=== PATIENT | female | born 1975 | race Caucasian/White ===

== ENCOUNTER 2019-10-01 08:25 | Day surgery (SDC) | payer OTHER ==
[~2019-10-01] VITALS: Ht 180.3 cm; Wt 111.1 kg
--- NOTE | 2019-10-01 10:30 | NUR ---
10/01/19 1030 Shiv Go RESPONDS TO VOICE. DENIES NAUSEA OR PAIN. ORIENTED TO TIME AND SITUATION.
--- NOTE | 2019-10-01 11:45 | OR ---
[facility] [address], [place] [address] Signed DATE OF OPERATION: 10/01/2019 SURGEON: Huong Gant MD PREOPERATIVE DIAGNOSES: 1. Recurrent episodes of diverticulitis. 2. Recurrent urinary tract infections without pneumaturia. 3. Clinical episodes of upper abdominal pain suggestive of reflux disease. POSTOPERATIVE DIAGNOSES: 1. Poor flap valve without associated esophagitis. 2. Diverticular changes of sigmoid without signs of polyps or colitis or stricture. PROCEDURES: 1. Esophagogastroduodenoscopy with biopsy. 2. Total colonoscopy to cecum. ANESTHESIA: Intravenous sedation, fentanyl 150 mcg, Versed 6 mg. INDICATION: This 44-year-old obese white woman (BMI 34.2) is a patient of JAZMYNE Ruelas. She lives in [place], [place] and works at [employer]. She has had recurrent bouts of diverticulitis at least 4 episodes, treated with antibiotics. This has become progressively problematic for her. She has had some diarrhea, but no constipation. She has undergone C difficile testing, which was negative. She is not currently having left lower abdominal pain, but does have some vague upper abdominal pain as well. She has undergone colonoscopy in the past in [facility], confirming diverticular changes, but no sign of polyps. She was advised previously to avoid nonsteroidal medications. She is medicated with prilosec for clinical GERD symptoms but has no alarm symptoms of dyspahagia or hematemesis. She is admitted at this time to undergo upper endoscopy and colonoscopy. She understands the risks of bleeding, infection, and perforation. FINDINGS: Upper endoscopy was normal except for a poor flap valve. She did not have associated esophagitis. CLOtest was negative. There were no other findings of concern. Colonoscopy showed a well prepped bowel. Complete colonoscopy was undertaken to the Electronically Signed By: HUONG GANT MD 10/01/19 1145 PATIENT NAME: AYALA LANDA OPERATIVE REPORT DATE OF : 73 REPORT #: [id number] PHYSICIAN: HUONG GANT MD PCP: NO PRIMARY CARE PHYSICIAN REPORT IS CONFIDENTIAL AND NOT TO BE RELEASED WITHOUT AUTHORIZATION [facility] [address] [place], [place] [address] Signed cecum. There were diverticula of the sigmoid and left colon. No sign of stricture, neoplasm or other abnormality. DESCRIPTION OF PROCEDURE: The patient was brought to the endoscopy suite, given topical Hurricaine spray hypopharyngeal anesthesia. She was placed in lateral decubitus position. A bite block was placed. Intravenous sedation was administered to a point of slurred speech and nystagmus with full cardiopulmonary monitoring. An Olympus video upper endoscope was passed in the hypopharynx and the vocal cords appeared normal. Scope was advanced to the esophagus, which appeared normal. Passed into the stomach, which was additionally normal. Rugal folds were normal as was the antral motility. The scope was passed through the normal-appearing pylorus into the duodenum, which appeared normal. Biopsies were obtained there to assess for celiac disease. The scope was withdrawn and biopsies then taken of the antrum for both CAROLYN and pathologic testing. Retroflexed view initially showed a reasonably good flap valve, but withdrawal of scope showed easy effacement of a somewhat patulous flap valve. The scope was straightened, withdrawn and the flap valve appeared normal. Mid midesophageal biopsies were additionally taken. The scope was withdrawn and removed. Plans were then made for colonoscopy. Additional sedation was given. Digital rectal examination performed, which was normal. An Olympus video colonoscope was passed in the rectum and manipulated throughout the colon noting diverticular change of the sigmoid and left colon. Abdominal wall stabilization was required to allow for passage to fully visualize the cecum. The biopsy forceps was used to elevate the mucosa behind the ileocecal valve, showing no sign of abnormality. The scope was then withdrawn, examination throughout showed no evidence of polyps, colitis, only diverticular changes as previously noted. The rectum was normal as well. The scope was removed and the patient was taken to the recovery room in good condition. CONCLUDING DIAGNOSES: 1. Normal upper endoscopy except for poor flap valve. 2. Diverticulosis of sigmoid. PLAN: High-fiber diet would be recommended. Consideration for elective sigmoid resection will be made depending on her preference considering recurrent diverticular disease. We will review her options more fully in the future. Electronically Signed By: HUONG GANT MD 10/01/19 1145 PATIENT NAME: AYALA LANDA OPERATIVE REPORT DATE OF : 73 REPORT #: [id number] PHYSICIAN: HUONG GANT MD PCP: NO PRIMARY CARE PHYSICIAN REPORT IS CONFIDENTIAL AND NOT TO BE RELEASED WITHOUT AUTHORIZATION [facility] [address] [place], [place] [address] Signed Huong Gant MD JM/MODL /[id number] cc: JAZMYNE Ruelas Copies: YAN BERNABE ~ Electronically Signed By: HUONG GANT MD 10/01/19 1145 PATIENT NAME: AYALA LANDA OPERATIVE REPORT DATE OF : 73 REPORT #: [id number] PHYSICIAN: HUONG GANT MD PCP: NO PRIMARY CARE PHYSICIAN REPORT IS CONFIDENTIAL AND NOT TO BE RELEASED WITHOUT AUTHORIZATION
--- NOTE | 2019-10-05 15:42 | PATH ---
[facility] [address] [place], [place] [address] Signed SPECIMEN(S): A DUODENUM SPECIMEN(S): B ANTRUM/PYLORUS SPECIMEN(S): C LOWER ESOPHAGUS SPECIMEN(S): D MIDDLE ESOPHAGUS SPECIMEN SOURCE: A. DUODENUM B. ANTRUM/PYLORUS C. LOWER ESOPHAGUS D. MIDDLE ESOPHAGUS CLINICAL HISTORY: History diverticulitis, diarrhea, LLQ pain. Post: Hiatal hernia, diverticulosis. MICROSCOPIC DESCRIPTION: A, B. Histologic sections of all submitted blocks are examined by light microscopy. These findings, together with the gross examination, support the pathologic diagnosis. C. Sections reveal a biopsy of esophageal mucosa composed of stratified squamous nonkeratinizing epithelium. The basal cell layer is not prominent and rete ridges are not elongated. A few intraepithelial lymphocytes are seen. Intraepithelial eosinophils are not a feature. No glandular mucosa is present. There is no evidence of malignancy or atypia. D. Sections reveal a biopsy of esophageal mucosa histologically similar to that described above in C. There is no evidence of malignancy or atypia. LJA:cml FINAL PATHOLOGIC DIAGNOSIS: A. Mucosa, duodenum, biopsy: - Duodenal mucosa with normal villous architecture, no microscopic pathologic diagnosis. B. Mucosa, antrum/pylorus, biopsy: - No microscopic pathologic diagnosis. - Negative for the presence of bacteria morphologically consistent with Helicobacter. C. Mucosa, lower esophagus, biopsy: - No microscopic pathologic diagnosis. D. Mucosa, middle esophagus, biopsy: - No microscopic pathologic diagnosis. LJA:cml:C2NR PATIENT NAME: JOSEPHINE SAXENA PATHOLOGY DATE OF : 73 REPORT #: [id number] PHYSICIAN: JOSEY ESCOBAR PCP: NO PRIMARY CARE PHYSICIAN REPORT IS CONFIDENTIAL AND NOT TO BE RELEASED WITHOUT AUTHORIZATION [facility] [address] [place], [place] [address] Signed GROSS DESCRIPTION: Four specimens are received in four containers, labeled "Josephine Saxena." A. The specimen, labeled "Josephine Saxena," and designated on the requisition "duodenum," is received in formalin and consists of three mohr soft tissue fragments that measure 0.2 to 0.3 cm in greatest dimension. The specimen is entirely submitted in cassette (A1). B. The specimen, labeled "Josephine Saxena, #2," and designated on the requisition "antrum/pylorus," is received in formalin and consists of two pink-mohr soft tissue fragments that measure 0.3 to 0.4 cm in greatest dimension. The specimen is entirely submitted in cassette (B1). C. The specimen, labeled "Josephine Saxena, #3," and designated on the requisition "lower esophagus," is received in formalin and consists of two white-mohr soft tissue fragments that measure 0.4 and 0.6 cm in greatest dimension. The specimen is entirely submitted in cassette (C1). D. The specimen, labeled "Josephine Saxena, #4," and designated on the requisition "mid esophagus," is received in formalin and consists of two white-mohr soft tissue fragments that measure 0.2 and 0.3 cm in greatest dimension. The specimen is entirely submitted in cassette (D1). FB (under the direct supervision of a pathologist) The Gross Description was prepared using a voice recognition system. The report was reviewed for accuracy; however, sound-alike word errors, addition and/or deletions may occur. If there is any question about this report, please contact Client Services. PERFORMING LABORATORY: The technical component was performed by [facility] [address] (Manager Regulatory: Pia Porras MD; CLIA# [id number]). Professional interpretation was performed by [facility], [address] [facility] [address] [place], [place] [address] (CLIA# [id number]). Diagnostician: Nav Garcia MD Pathologist Electronically Signed 10/05/2019 Copies: PATIENT NAME: JOSEPHINE SAXENA PATHOLOGY DATE OF : 73 REPORT #: [id number] PHYSICIAN: JOSEY PATHOLOGY PCP: NO PRIMARY CARE PHYSICIAN REPORT IS CONFIDENTIAL AND NOT TO BE RELEASED WITHOUT AUTHORIZATION [facility] [address] [place], [place] [address] Signed ~ PATIENT NAME: JOSEPHINE SAXENA PATHOLOGY DATE OF : 73 REPORT #: [id number] PHYSICIAN: JOSEY PATHOLOGY PCP: NO PRIMARY CARE PHYSICIAN REPORT IS CONFIDENTIAL AND NOT TO BE RELEASED WITHOUT AUTHORIZATION
== END 2019-10-01 11:07 | disposition home or self-care (01) ==
LOC: OPS 08:25 → DS 08:25 → OPS 09:15 → DS 09:15 → OPS 11:07
PROVIDERS: Surgery
PROC: 0DB78ZX Excision of Stomach, Pylorus, Via Natural or Artificial Opening Endoscopic, Diagnostic (ICD-10-PCS; 2019-10-01)
PROC: 0DB28ZX Excision of Middle Esophagus, Via Natural or Artificial Opening Endoscopic, Diagnostic (ICD-10-PCS; 2019-10-01)
PROC: 0DB38ZX Excision of Lower Esophagus, Via Natural or Artificial Opening Endoscopic, Diagnostic (ICD-10-PCS; 2019-10-01)
PROC: 0DJD8ZZ Inspection of Lower Intestinal Tract, Via Natural or Artificial Opening Endoscopic (ICD-10-PCS; principal; 2019-10-01 09:15)
PROC: 0DB98ZX Excision of Duodenum, Via Natural or Artificial Opening Endoscopic, Diagnostic (ICD-10-PCS; 2019-10-01 09:15)
DX: K57.30 Diverticulosis of large intestine without perforation or abscess without bleeding (principal); K44.9 Diaphragmatic hernia without obstruction or gangrene; K21.9 Gastro-esophageal reflux disease without esophagitis; N39.0 Urinary tract infection, site not specified; E66.01 Morbid (severe) obesity due to excess calories; Z88.5 Allergy status to narcotic agent; Z90.710 Acquired absence of both cervix and uterus; Z98.890 Other specified postprocedural states; Z87.19 Personal history of other diseases of the digestive system; Z68.34 Body mass index [BMI] 34.0-34.9, adult; Z79.899 Other long term (current) drug therapy
CPT/HCPCS: 99153; G0500; J2250; J3010; J7121

== ENCOUNTER 2019-11-09 14:09 | Inpatient (IN) | payer OTHER ==
[~2019-11-09] VITALS: Ht 180.3 cm; Wt 113.4 kg
--- OUTSIDE RECORDS SUMMARY | ~2019-11-09 | XMS | Encounter Summary ---
Demographics + + + | Address | [address] | | | [place] [address] | + + + | Home Phone | | + + + | Preferred Language | Unknown | + + + | Marital Status | | + + + | Uatsdin Affiliation | 1013 | + + + | Race | White | + + + | Ethnic Group | Not or | + + + Author + + + | Author | [facility] | | | and [place] | + + + | Organization | [facility] | | | and [place] | + + + | Address | Unknown | + + + | Phone | Unavailable | + + + Support + + +---------+ + | Name | Relationship | Address | Phone | + + +---------+ + | Rodrigue Saxena | ECON | Unknown | | + + +---------+ + | Dora Akanksha | ECON | Unknown | | + + +---------+ + Care Team Providers + +------+ + | Care Undercoat Sprayer Name | Role | Phone | + +------+ + PCP | Unavailable | + +------+ + Encounter Details +--------+ + + + + | Date | Type | Department | Care Team | Description | +--------+ + + + + | 09/02/ | Orders Only | [facility] | Lubna Marie, | | | 2018 | | [address] | PA-C [address] | | | | | [place], [place] | [address] | | | | | [phone] | [place] [address] | | | | | [phone] | [phone] | | | | | | | | +--------+ + + + + Social History + +-------+ +--------+------+ | Tobacco Use | Types | Packs/Day | Years | Date | | | | | Used | | + +-------+ +--------+------+ | Never Assessed | | | | | + +-------+ +--------+------+ + + + | Sex Assigned at | Date Recorded | | | | + + + | Not on file | | + + + documented as of this encounter Plan of Treatment Not on filedocumented as of this encounter Procedures + +--------+ + + + | Procedure Name | Priori | Date/Time | Associated Diagnosis | Comments | | | ty | | | | + +--------+ + + + | VITAMIN D, | Routin | 09/02/2017 | | Results for this | | DEFICIENCY SCREEN | e | 3:46 PM | | procedure are in the | | (25-HYDROXY) | | PDT | | results section. | + +--------+ + + + documented in this encounter Results Vitamin D, Deficiency Screen (25-Hydroxy) (09/02/2017 3:46 PM PDT) + + + + + + | Component | Value | Ref Range | Performed | Pathologist | | | | | At | Signature | + + + + + + | Vit D, | 20 (L)Comment: <20 ng/mL | 30 - 150 ng/mL | EXTERNAL | | | 25-Hydroxy | Suggests | | LAB | | | | deficiency of 25-OH | | | | | | Vitamin D. 20-29 ng/mL | | | | | | Suggests a relative | | | | | | insufficiency of 25-OH | | | | | | Vitamin D. 30-150 ng/mL | | | | | | Suggests a sufficient | | | | | | level of 25-OH Vitamin | | | | | | D. >150 ng/mL | | | | | | Toxic level of 25-OH | | | | | | Vitamin D. Blood levels | | | | | | of 25 Hydroxy Vitamin D | | | | | | vary with the extent of | | | | | | sun exposure. Values | | | | | | tend to be highest in | | | | | | late summer and lowest | | | | | | in the spring. Values | | | | | | also tend to decrease | | | | | | with age, due to | | | | | | decreased precursor | | | | | | synthesis in the skin. | | | | + + + + + + + + | Specimen | + + | Blood specimen | | (specimen) | + + + +---------+ + + | Performing | Address | City/State/Zipcode | Phone Number | | Organization | | | | + +---------+ + + | EXTERNAL LAB | | | | + +---------+ + + documented in this encounter Visit Diagnoses Not on filedocumented in this encounter"
--- OUTSIDE RECORDS SUMMARY | ~2019-11-09 | XMS | Encounter Summary ---
Demographics + + + | Address | [address] | | | [place] [address] | + + + | Home Phone | | + + + | Preferred Language | Unknown | + + + | Marital Status | | + + + | Shinto Affiliation | 1013 | + + + | Race | White | + + + | Ethnic Group | Not or | + + + Author + + + | Author | [facility] | | | and [place] | + + + | Organization | [facility] | | | and [place] | + + + | Address | Unknown | + + + | Phone | Unavailable | + + + Support + + +---------+ + | Name | Relationship | Address | Phone | + + +---------+ + | Rodrigue Saxena | ECON | Unknown | | + + +---------+ + | [place] | ECON | Unknown | | + + +---------+ + Care Team Providers + +------+ + | Care Fancy Packer Name | Role | Phone | + +------+ + PCP | Unavailable | + +------+ + Encounter Details +--------+ + + + + | Date | Type | Department | Care Team | Description | +--------+ + + + + | 01/01/ | Hospital | [facility] | Conversion | Encounter for | | 2017 | Encounter | IMAGING SERVICES | Transaction, | screening breast | | | | [address] | Provider Unknown | examination | | | | [address] [place], [place] | [phone] | | | | | [phone] | (Fax) | | | | | [phone] | | | +--------+ + + + [...] + + documented as of this encounter Progress Notes Lubna Marie PA-C - 01/01/2017 11:59 PM PDTFormatting of this note might be different f rom the original. Progress Notes by Lubna Marie PA-C at 01/01/172358 Author: Lubna Marie PA-C Service: (none) Author Type: Physician [employer] Teacher - Certified Filed: 01/03/17 0752 Date of Service: 01/01/172358 Status: Signed [place] Nibs Inspector: Lubna Marie PA-C (Physician [employer] Industrial [employer] Teacher - Certified) Please inform pt that her mammogram is normal and she is to repeat annual screening in 1 ye ar but she should be evaluated if she develops any breast sxs. documented in this encounter Plan of Treatment Not on filedocumented as of this encounter Procedures + +--------+ + + + | Procedure Name | Priori | Date/Time | Associated Diagnosis | Comments | | | ty | | | | + +--------+ + + + | THERESE TOMOSYN | Routin | 01/01/2017 | | Results for this | | SCREENING BILATERAL | e | 5:55 PM | | procedure are in the | | | | PDT | | results section. | + +--------+ + + + documented in this encounter Results THERESE Tomosynthesis Screening Bilateral (01/01/2017 5:55 PM PDT) + + | Specimen | + + | | + + + + + | Impressions | Performed At | + + + | 1. Benign findings. Normal interval follow-up is recommended in | | | 12 months. Assessment: BI-RADS 2 Per National MQSA | | | guidelines, a letter of notification will be sent to the patient. | | | | | | 4:10 PM | | + + + + + + | Narrative | Performed At | + + + | JOSEPHINE SAXENA MAMMO SCREEN COMBO HD BILATERAL 01/01/2017 5:55 | | | PM HISTORY: 41 years. Female. Asymptomatic for breast | | | disease. TECHNIQUE: Digital mammographic craniocaudad and medial | | | lateral oblique (2D) views of each breast were performed, with | | | additional digital tomosynthesis (3D) imaging of each breast in 2 | | | projections. Computerized aided detection software was utilized. | | | Prior study: 10 January 2016 through 01 February 2009 FINDINGS: | | | Breast Tissue: There are scattered areas of fibroglandular | | | density. Stable parenchymal pattern in architecture. No worrisome | | | findings by computer-assisted detection. No registers. A few | | | asymmetries of denser tissue such behind the right nipple, but these | | | are stable to technique No significant masses, calcifications, or | | | areas of architectural distortion are seen. | | + + + + + | Procedure Note | + + | Tion, Rad Conversion - 11/04/2018 6:37 PM PDT JOSEPHINE PINEDO SCREEN COMBO HD | | [id number]/11/2017 5:55 PM HISTORY: 41 years. Female. Asymptomatic for breast | | disease. TECHNIQUE: Digital mammographic craniocaudad and medial lateral oblique (2D) | | views of each breast were performed, with additional digital tomosynthesis (3D) imaging | | of each breast in 2 projections. Computerized aided detection software was utilized. | | Prior study: 10 January 2016 through 01 February 2009 FINDINGS: Breast Tissue: There | | are scattered areas of fibroglandular density. Stable parenchymal pattern in | | architecture. No worrisome findings by computer-assisted detection. No registers. A few | | asymmetries of denser tissue such behind the right nipple, but these are stable to | | technique No significant masses, calcifications, or areas of architectural distortion | | are seen. IMPRESSION: 1. Benign findings. Normal interval follow-up is recommended in | | 12 months. Assessment: BI-RADS 2 Per National MQSA guidelines, a letter of | | notification will be sent to the patient. | |Stable parenchymal pattern in architecture. No worrisome findings by computer-assisted dete ction. No registers. A few asymmetries of denser tissue such behind the right nipple, but th ernestina are stable to technique | | | |No significant masses, calcifications, or areas of architectural distortion are seen. | | | |IMPRESSION: | | | |1. Benign findings. Normal interval follow-up is recommended in 12 months. | | | |Assessment: BI-RADS 2 | | | | | | | |Per National MQSA guidelines, a letter of notification will be sent to the patient. | | | | | | | | | | | + + documented in this encounter Visit Diagnoses + + | Diagnosis | + + | Encounter for screening breast examination | + + documented in this encounter"
--- OUTSIDE RECORDS SUMMARY | ~2019-11-09 | XMS | Encounter Summary ---
Demographics + + + | Address | [address] | | | [place] [address] | + + + | Home Phone | | + + + | Preferred Language | Unknown | + + + | Marital Status | | + + + | Faith Affiliation | 1013 | + + + | Race | White | + + + | Ethnic Group | Not or | + + + Author + + + | Author | [facility] | | | and [place] | + + + | Organization | [facility] | | | and [place] | + + + | Address | Unknown | + + + | Phone | Unavailable | + + + Support + + +---------+ + | Name | Relationship | Address | Phone | + + +---------+ + | Rodrigue Saxena | ECON | Unknown | | + + +---------+ + | Dorabea Vale | ECON | Unknown | | + + +---------+ + Care Team Providers + +------+ + | Care Medical Staff Services Coordinator Name | Role | Phone | + +------+ + | Lubna Marie PA-C | PCP | | + +------+ + Encounter Details +--------+ + + + + | Date | Type | Department | Care Team | Description | +--------+ + + + + | 02/23/ | Orders Only | [facility] | Jake Reynolds | | | 2015 | | NOSE AND THROAT [address] | MD [address] | | | | | [address] | [address] | | | | | [place], [place] | [place] [address] | | | | | [address] | [phone] | | | | | [phone] | | | +--------+ + + + [...] documented as of this encounter Progress Notes GailJake - 02/23/2015 9:38 AM PSTFormatting of this note might be different f rom the original. Progress Notes by Jake Reynolds MD at 02/23/15 8509 Author: Jake Reynolds MD Service: (none) Author Type: Physician Filed: 02/23/15 1051 Encounter Date: 02/23/2015 Status: Signed Tower Loader Operator: Jake Reynolds MD (Physician) Subjective: Subjective Josephine Saxena is a 39 y.o. female who I am asked to see in consultation for e valuation of dizziness. The dizziness has been present for 5 years. The patient describes t he symptoms as disequilibirum, lightheadedness and upset stomach and headache . . 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 Symptoms seem to last for a few hours before resolving. She is able to continue to work when the episodes occur. She can also have a steady gait when she has one of the episodes. Cleopatra nt denies aural pressure, otalgia, otorrhea, tinnitus, hearing loss. She has not been treat ed or evaluated in the past. The following portions of the patient's history were reviewed and updated as appropriate: a llergies, current medications, past family history, past medical history, past social histor y, past surgical history and problem list. Patient states she had MRI done few years ago. Esteban gonsalez states her symptoms are about every month lasting for about few hours. Patient states she was sitting on her desk working and the dizziness hit and gets headache, nausea and its hard to concentrate. Patient states she has not notice she has lost her balance, she states she feels like car sick. Patient is able to drive after an episode and feels okay after. Nicole urias states she has to do things to help with car sickness. History: Past Medical History Diagnosis Date Infertility Fibroid Past Surgical History Procedure Laterality Date Foot surgery 12/2010 Breast surgery 2003 breast reduction Hysterectomy 2006 partial Breast reduction surgery 2002 bilateral Family History Problem Relation Age of Onset Coronary art dis Father Cancer Father prostate ca Breast cancer Maternal Grandmother 60's Breast cancer Paternal Grandmother 60 History Social History Marital Status: Spouse Name: N/A Number of Children: N/A Years of Education: N/A Social History Main Topics Smoking status: Never Smoker Smokeless tobacco: Never Used Alcohol Use: Yes Drug Use: No Sexual Activity: Partners: Male Control/ Protection: Surgical-Self Other Topics Concern None Social History Narrative Allergies: Allergies Allergen Reactions Codeine Itching and Nausea and Vomiting Medications: No current outpatient prescriptions on file. No current facility-administered medications for this visit. Review of Systems Constitutional: negative Respiratory: negative Cardiovascular: negative Gastrointestinal: negative Hematologic/lymphatic: negative Musculoskeletal:negative Neurological: positive for dizziness and headaches Behavioral/Psych: negative Endocrine: negative Allergic/Immunologic: negative Objective: Objective Pulse 87 | Wt 100.245 kg (221 lb) | SpO2 100% General: healthy, alert, appears stated age, not in distress, voice is clear Head and Face: facial movement was normal and symmetrical, nontender External Ears: normal pinnae shape and position Ext. Aud. Canal: Right:patent Left: patent Tympanic Mem: Right: normal landmarks and mobility Left: normal landmarks and mobility Nose: deviated septum to the left Oral Cavity: normal tongue movement Tonsils: 2+ bilaterally, normal appearance Post. Pharynx: normal mucosa Neck: no asymmetry, masses, or scars, no lymphadenopathy Thyroid: Normal Eyes- Extraocular movements are intact Psych - Alert and oriented to person, place and time Normal Gait, normal Tandem walk, Romberg: Normal cerebellar testing is Normal. Audiometry: normal hearing thresholds bilaterally Tympanometry: Right: Type A Left: Type A Assessment: ICD-10-CM 1. Dizziness R42 CBC W/Auto Diff (Reflex to Manual) Comprehensive metabolic panel Sedimentation rate, automated Assessment Vertigo Plan: Plan 1. Etiology of episodic dizziness is not entirely clear. Possible Meniere's Disease. Rule out metabolic source. I recommend Vestibular studies VNG, will order lab test: cbc, cmp. ESR 2. The risks and benefits of my recommendations, as well as other treatment options were di scussed with the patient today. Return for follow-up after test are completed. documented in this encounter Plan of Treatment Not on filedocumented as of this encounter Procedures + +--------+ + + + | Procedure Name | Priori | Date/Time | Associated Diagnosis | Comments | | | ty | | | | + +--------+ + + + | EXTERNAL LAB: CBC | Routin | 02/23/2015 | | Results for this | | | e | 10:20 AM | | procedure are in the | | | | PST | | results section. | + +--------+ + + + | SEDIMENTATION RATE, | Routin | 02/23/2015 | | Results for this | | AUTOMATED | e | 10:20 AM | | procedure are in the | | | | PST | | results section. | + +--------+ + + + | COMPREHENSIVE | Routin | 02/23/2015 | | Results for this | | METABOLIC PANEL | e | 10:20 AM | | procedure are in the | | | | PST | | results section. | + +--------+ + + + documented in this encounter Results Sedimentation rate, automated (02/23/2015 10:20 AM PST) + + + + + + | Component | Value | Ref Range | Performed | Pathologist | | | | | At | Signature | + + + + + + | Sed Rate | 17Comment: Testing | 0 - 20 | EXTERNAL | | | | performed at [facility];[address] | | LAB | | | | [address] | | | | | | [place] [address] | | | | + + + + + + + + | Specimen | + + | Blood specimen | | (specimen) | + + + +---------+ + + | Performing | Address | City/State/Zipcode | Phone Number | | Organization | | | | + +---------+ + + | EXTERNAL LAB | | | | + +---------+ + + External Lab: CBC (02/23/2015 10:20 AM PST) + + + + + + | Component | Value | Ref Range | Performed | Pathologist | | | | | At | Signature | + + + + + + | WBC | 8.91 | 3.80 - 11.00 | EXTERNAL | | | | | 10*3/uL | LAB | | + + + + + + | Non- | 4.37 | 3.70 - 5.10 | EXTERNAL | | | Red Blood | | | LAB | | | Cells | | | | | | Counted | | | | | + + + + + + | Hemoglobin | 13.8 | 11.3 - 15.5 | EXTERNAL | | | | | g/dL | LAB | | + + + + + + | Hematocrit, | 41.6 | 34.0 - 46.0 % | EXTERNAL | | | POC | | | LAB | | + + + + + + | MCV | 95.3 | 80.0 - 100.0 fL | EXTERNAL | | | | | | LAB | | + + + + + + | MCH | 31.6 | 27.0 - 34.0 pg | EXTERNAL | | | | | | LAB | | + + + + + + | MCHC | 33.2 | 32.0 - 35.5 | EXTERNAL | | | | | g/dL | LAB | | + + + + + + | RDW-CV | 43.8 | 37 - 53 fL | EXTERNAL | | | | | | LAB | | + + + + + + | Platelet | 243 | 150 - 400 | EXTERNAL | | | Count | | 10*3/uL | LAB | | | Plasma | | | | | + + + + + + | MPV | 8.6 | fL | EXTERNAL | | | | | | LAB | | + + + + + + | Differentia | AUTOMATED | | EXTERNAL | | | l Type | | | LAB | | + + + + + + | % Segmented | 67.29 | % | EXTERNAL | | | | | | LAB | | | Neutrophils | | | | | + + + + + + | % | 24.85 | % | EXTERNAL | | | Lymphocytes | | | LAB | | + + + + + + | % Monocytes | 5.57 | % | EXTERNAL | | | | | | LAB | | + + + + + + | % | 1.83 | % | EXTERNAL | | | Eosinophils | | | LAB | | + + + + + + | % Basophils | 0.46 | % | EXTERNAL | | | | | | LAB | | + + + + + + | Absolute | 6.00 | 1.90 - 7.40 | EXTERNAL | | | Segmented | | 10*3/uL | LAB | | | Neutrophils | | | | | + + + + + + | Absolute | 2.21 | 1.00 - 3.90 | EXTERNAL | | | Lymphocytes | | 10*3/uL | LAB | | + + + + + + | Absolute | 0.50 | 0.00 - 0.80 | EXTERNAL | | | Monocytes | | 10*3/uL | LAB | | + + + + + + | Absolute | 0.16 | 0.00 - 0.50 | EXTERNAL | | | Eosinophils | | 10*3/uL | LAB | | + + + + + + | Absolute | 0.04Comment: Testing | 0.00 - 0.10 | EXTERNAL | | | Basophils | performed at [facility];[address] | 10*3/uL | LAB | | | | [address] | | | | | | [address];[place] [address] | | | | + + + + + + + + | Specimen | + + | Blood specimen | | (specimen) | + + + +---------+ + + | Performing | Address | City/State/Zipcode | Phone Number | | Organization | | | | + +---------+ + + | EXTERNAL LAB | | | | + +---------+ + + Comprehensive Metabolic Panel (02/23/2015 10:20 AM PST) + + + + + + | Component | Value | Ref Range | Performed | Pathologist | | | | | At | Signature | + + + + + + | Na | 138 | 135 - 143 | EXTERNAL | | | | | mmol/L | LAB | | + + + + + + | K | 4.3 | 3.5 - 4.9 | EXTERNAL | | | | | mmol/L | LAB | | + + + + + + | Cl | 103 | 99 - 109 mmol/L | EXTERNAL | | | | | | LAB | | + + + + + + | CO2 | 28 | 23 - 32 mmol/L | EXTERNAL | | | | | | LAB | | + + + + + + | Anion Gap | 11 | 5 - 20 mmol/L | EXTERNAL | | | | | | LAB | | + + + + + + | Glucose, | 96 | 65 - 99 mg/dL | EXTERNAL | | | Fasting | | | LAB | | + + + + + + | BUN | 12 | 8 - 25 mg/dL | EXTERNAL | | | | | | LAB | | + + + + + + | Creatinine | 0.77 | 0.50 - 1.00 | EXTERNAL | | | | | mg/dL | LAB | | + + + + + + | BUN/Creatin | 16 | | EXTERNAL | | | ine Ratio | | | LAB | | + + + + + + | Calcium | 9.5 | 8.5 - 10.5 | EXTERNAL | | | | | mg/dL | LAB | | + + + + + + | Protein, | 6.9 | 6.3 - 8.2 g/dL | EXTERNAL | | | Total | | | LAB | | + + + + + + | Albumin | 4.3 | 3.6 - 5.0 g/dL | EXTERNAL | | | | | | LAB | | + + + + + + | Globulin | 2.6 | 1.3 - 4.9 g/dL | EXTERNAL | | | | | | LAB | | + + + + + + | A/G Ratio | 1.7 | 1.0 - 2.4 | EXTERNAL | | | | | | LAB | | + + + + + + | Bilirubin | 0.5 | 0.1 - 1.5 mg/dL | EXTERNAL | | | Total | | | LAB | | + + + + + + | ALP, | 67 | 35 - 115 U/L | EXTERNAL | | | External | | | LAB | | + + + + + + | AST | 12 | 10 - 45 U/L | EXTERNAL | | | | | | LAB | | + + + + + + | ALT | 9 (L) | 10 - 65 U/L | EXTERNAL | | | | | | LAB | | + + + + + + | Estimated | >60Comment: GFR <60: | | EXTERNAL | | | GFR | CHRONIC KIDNEY DISEASE, | | LAB | | | | IF FOUND OVER A 3 MONTH | | | | | | PERIOD. GFR <15: KIDNEY | | | | | | FAILURE. FOR | | | | | | AMERICANS, MULTIPLY THE | | | | | | CALCULATED GFR BY | | | | | | 1.210.Testing performed | | | | | | at [facility];[address] | | | | | | [place] | | | | | | [address] | | | | + + + [...]
--- OUTSIDE RECORDS SUMMARY | ~2019-11-09 | XMS | Encounter Summary ---
Demographics + + + | Address | [address] | | | [place] [address] | + + + | Home Phone | | + + + | Preferred Language | Unknown | + + + | Marital Status | | + + + | Zoroastrianism Affiliation | 1013 | + + + | Race | White | + + + | Ethnic Group | Not or | + + + Author + + + | Author | [facility] | | | and [place] | + + + | Organization | [facility] | | [...] Team Providers + +------+ + | Care Chestnut Tanner Name | Role | Phone | + +------+ + PCP | Unavailable | + +------+ + Encounter Details +--------+ + + + + | Date | Type | Department | Care Team | Description | +--------+ + + + + | 12/22/ | [facility] | [facility] | Conversion | Other screening | | 2015 | Encounter | IMAGING SERVICES | Transaction, | mammogram | | | | [address] | Provider Unknown | | | | | [address] [place], [place] | | | | | | [address] | (Fax) | | | | | [phone] | | | +--------+ + + + [...] + | THERESE TOMOSYN | Routin | 12/22/2014 | | Results for this | | SCREENING BILATERAL | e | 8:46 AM | | procedure are in the | | | | PDT | | results section. | + +--------+ + + + documented in this encounter Results THERESE Tomosynthesis Screening Bilateral (12/22/2014 8:46 AM PDT) + + | Specimen | + + | | + + + + + | Impressions | Performed At | + + + | 1. No evidence of malignancy to screening 3-D mammography with | | | computer assisted detection. BIRADS - 1 - negative screening | | | mammogram. Advise the continuance of annual screening. Note: | | | Patient informed of the above by standard letter. General breast | | | imaging addendum: 10-15% of palpable breast abnormalities may not be | | | visualized on mammography. Negative imaging of the breasts should | | | not postpone further evaluation of a clinically significant palpable | | | abnormality. Electronically signed by Juan J Santana MD on | | | 12/22/2014 10:33 AM | | + + + + + + | Narrative | Performed At | + + + | HISTORY: 39 years old asymptomatic female without here documented | | | elevated risk of breast cancer on the basis of family and personal | | | history. TECHNIQUE: Bilateral screening digital MLO and CC views | | | of breast tissue. Examination performed with additional 3D tomographic | | | views, tomosynthesis. Viewed with benefit of computer assisted | | | detection. Prior study: 30 December 2013 through 03 December 2006 | | | FINDINGS : The breast parenchyma is scattered islands of | | | fibroglandular tissue. No suspicious masses or calcifications. No | | | new or worrisome foci of dense tissue. There is no skin thickening, | | | lymphadenopathy or secondary sign of malignancy. The small lymph nodes | | | in the right axilla are stable. There are no other or worrisome | | | findings by computer-assisted detection Stable parenchymal | | | pattern and architecture to technique There are densities noted, | | | which are not revealed as worrisome upon 3D analysis. | | + + + + + | Procedure Note | + + | Tino, Rad Conversion - 11/06/2018 12:21 AM PDT HISTORY: 39 years old asymptomatic | | female without here documented elevated risk of breast cancer on the basis of family and | | personal history. TECHNIQUE: Bilateral screening digital MLO and CC views of breast | | tissue. Examination performed with additional 3D tomographic views, tomosynthesis. | | Viewed with benefit of computer assisted detection. Prior study: 30 December 2013 through | | 03 December 2006 FINDINGS :The breast parenchyma is scattered islands of fibroglandular | | tissue. No suspicious masses or calcifications. No new or worrisome foci of dense | | tissue. There is no skin thickening, lymphadenopathy or secondary sign of malignancy. | | The small lymph nodes in the right axilla are stable. There are no other or worrisome | | findings by computer-assisted detection Stable parenchymal pattern and architecture to | | technique There are densities noted, which are not revealed as worrisome upon 3D | | analysis. IMPRESSION: 1. No evidence of malignancy to screening 3-D mammography with | | computer assisted detection. BIRADS - 1 - negative screening mammogram. Advise the | | continuance of annual screening. Note:Patient informed of the above by standard | | letter.General breast imaging addendum: 10-15% of palpable breast abnormalities may not | | be visualized on mammography. Negative imaging of the breasts should not postpone | | further evaluation of a clinically significant palpable abnormality. Electronically | | signed by Juan J Santana MD on 12/22/2014 10:33 AM | | | |1. No evidence of malignancy to screening 3-D mammography with computer assisted detection. | | | |BIRADS - 1 - negative screening mammogram. Advise the continuance of annual screening. | | | |Note: | |Patient informed of the above by standard letter. | |General breast imaging addendum: 10-15% of palpable breast abnormalities may not be visuali zed on mammography. Negative imaging of the breasts should not postpone further evaluation of a clinically significant palpable abnormality. | | | | | | | + + documented in this encounter Visit Diagnoses + + | Diagnosis | + + | Other screening mammogram | + + documented in this encounter"
--- OUTSIDE RECORDS SUMMARY | ~2019-11-09 | XMS | Encounter Summary ---
Demographics + + + | Address | [address] | | | [place] [address] | + + + | Home Phone | | + + + | Preferred Language | Unknown | + + + | Marital Status | | + + + | Jain Affiliation | 1013 | + + + | Race | White | + + + | Ethnic Group | Not or | + + + Author + + + | Author | [facility] | | | and [place] | + + + | Organization | [facility] | | | and [...] Team Providers + +------+ + | Care Director Of Clinical Trials Name | Role | Phone | + +------+ + PCP | Unavailable | + +------+ + Encounter Details +--------+ + + + + | Date | Type | Department | Care Team | Description | +--------+ + + + + | 01/09/ | Hospital | [facility] | Conversion | Encounter for | | 2016 | Encounter | IMAGING SERVICES | Transaction, | screening mammogram | | | | [address] | Provider Unknown | for malignant | | | | [address] [place], [place] | [phone] | neoplasm of breast | | | | [address] | | | | | | [phone] | | | +--------+ + + + [...] + | THERESE TOMOSYN | Routin | 01/10/2016 | | Results for this | | SCREENING BILATERAL | e | 11:07 AM | | procedure are in the | | | | PDT | | results section. | + +--------+ + + + documented in this encounter Results THERESE Tomosynthesis Screening Bilateral (01/10/2016 11:07 AM PDT) + + | Specimen | + + | | + + + + + | Impressions | Performed At | + + + | Negative. No evidence of malignancy. Normal interval follow-up | | | is recommended in 12 months. ASSESSMENT: BI-RADS Category 1 - | | | Negative. Per National MQSA guidelines, a letter of notification | | | will be sent to the patient. | | + + + + + + | Narrative | Performed At | + + + | [facility] MAMMO SCREEN COMBO HD BILATERAL 01/10/2016 11:07 | | | AM HISTORY: 40 years. Female. Asymptomatic for breast | | | disease. TECHNIQUE: Digital mammographic craniocaudad and medial | | | lateral oblique (2D) views of each breast were performed, with | | | additional digital tomosynthesis (3D) imaging of each breast in 2 | | | projections. Computerized aided detection software was utilized. | | | COMPARISON: 12/22/2014 and previous exams dated back to 12/03/2006 | | | FINDINGS: Breast Tissue: There are scattered areas of | | | fibroglandular density. No significant masses, calcifications, | | | or areas of architectural distortion are seen. | | + + + + --+ | Procedure Note | + --+ | Tino, Rad Conversion - 11/05/2018 6:05 AM [facility]ASS NIELSEN COMBO HD | | [id number]/19/2016 11:07 AM HISTORY: 40 years. Female. Asymptomatic for breast | | disease. TECHNIQUE: Digital mammographic craniocaudad and medial lateral oblique (2D) | | views of each breast were performed, with additional digital tomosynthesis (3D) imaging | | of each breast in 2 projections. Computerized aided detection software was utilized. | | COMPARISON: 12/22/2014 and previous exams dated back to 12/03/2006 FINDINGS: Breast | | Tissue: There are scattered areas of fibroglandular density. No significant masses, | | calcifications, or areas of architectural distortion are seen. IMPRESSION: Negative. | | No evidence of malignancy. Normal interval follow-up is recommended in 12 months. | | ASSESSMENT: BI-RADS Category 1 - Negative. Per National MQSA guidelines, a letter of | | notification will be sent to the patient. Electronically signed by Ezio Torres DO on | | 01/11/2016 10:12 AM | |Breast Tissue: There are scattered areas of fibroglandular density. | | | | | |No significant masses, calcifications, or areas of architectural distortion are seen. | | | |IMPRESSION: | | | |Negative. No evidence of malignancy. Normal interval follow-up is recommended in 12 months . | | | |ASSESSMENT: BI-RADS Category 1 - Negative. | | | |Per National MQSA guidelines, a letter of notification will be sent to the patient. | | | | | + --+ documented in this encounter Visit Diagnoses + + | Diagnosis | + + | Encounter for screening mammogram for malignant neoplasm of breast Other screening | | mammogram | + + documented in this encounter"
--- OUTSIDE RECORDS SUMMARY | ~2019-11-09 | XMS | Clinical Summary ---
Demographics + + + | Address | [address] | | | [place] [address] | + + + | Home Phone | | + + + | Preferred Language | Unknown | + + + | Marital Status | | + + + | Religion Affiliation | 1013 | + + + [...] | + + +---------+ + | [place] | ECON | Unknown | | + + +---------+ + Care Team Providers + +------+ + | Care Clerk To Justice Name | Role | Phone | + +------+ + | Lubna Marie PA-C | PCP | | + +------+ + Allergies + + + + + + | Active Allergy | Reactions | Severity | Noted | Comments | | | | | Date | | + + + + + + | Codeine | Itching, Nausea And | Medium | 09/16/19 | | | | Vomiting | | 12 | | + + + + + + Medications No known medications Active Problems + + + | Problem | Noted Date | + + + | Mixed dyslipidemia | 07/21/2017 | + + + | Vitamin D deficiency | 07/21/2017 | + + + | Sleeping difficulties | 01/15/2016 | + + + | Anxiety | 01/10/2016 | + + + | Thyroid nodule | 10/03/2014 | + + + | Thyromegaly | 09/15/2012 | + + + | 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 | + + + + + | Overview: hx of prior to pregnancies | + + + + + | S/P hysterectomy | 09/16/2011 | + + + Family History + + +------+ + | Medical History | Relation | Name | Comments | + + +------+ + | Cancer | Father | | prostate ca | + + +------+ + | Coronary artery | Father | | | | disease | | | | + + +------+ + | Breast cancer | Maternal | | age 89 | | | Aunt | | | + + +------+ + | Breast cancer | Maternal | | 60's | | | Grandmoth | | | | | er | | | + + +------+ + | Breast cancer | Paternal | | | | | Grandmoth | | | | | er | | | + + +------+ + + +------+--------+ + | Relation | Name | Status | Comments | + +------+--------+ + | Father | | Alive | | + +------+--------+ + | Maternal Aunt | | | | + +------+--------+ + | Maternal Grandmother | | | | + +------+--------+ + | Mother | | Alive | | + +------+--------+ + | Paternal Grandmother | | | | + +------+--------+ + Social History + +-------+ +--------+------+ | Tobacco Use | Types | Packs/Day | Years | Date | | | | | Used | | + +-------+ +--------+------+ | Never Smoker | | | | | + +-------+ +--------+------+ + +---+---+---+ | Smokeless Tobacco: | | | | | Never Used | | | | + +---+---+---+ + + +---------+ + | Alcohol Use | Drinks/Week | oz/Week | Comments | + + +---------+ + | Yes | | | occasional | + + +---------+ + + + + | Sex Assigned at | Date Recorded | | | | + + + | Not on file | | + + + Last Filed Vital Signs + + + + + | Vital Sign | Reading | Time Taken | Comments | + + + + + | Blood Pressure | 118/70 | 01/11/2019 9:01 AM | | | | | PDT | | + + + + + | Pulse | 99 | 01/11/2019 9:01 AM | | | | | PDT | | + + + + + | Temperature | - | - | | + + + + + | Respiratory Rate | - | - | | + + + + + | Oxygen Saturation | 100% | 01/11/2019 9:01 AM | | | | | PDT | | + + + + + | Inhaled Oxygen | - | - | | | Concentration | | | | + + + + + | Weight | 110.7 kg (244 lb) | 01/11/2019 9:01 AM | | | | | PDT | | + + + + + | Height | 180.3 cm (5' 11") | 01/11/2019 9:01 AM | | | | | PDT | | + + + + + | Body Mass Index | 34.03 | 01/11/2019 9:01 AM | | | | | PDT | | + + + + + Plan of Treatment + + + + + | Health Maintenance | Due Date | Last | Comments | | | | Done | | + + + + + | Hepatitis C | | | | | Screening | 5 | | | + + + + + | Vaccine: | | | | | Dtap/Tdap/Td (1 - | 4 | | | | Tdap) | | | | + + + + + | Vaccine: Influenza | | | | | (#1) | 0 | | | + + + + + | Breast Cancer | | 01/12/20 | | | Screening | 0 | 19, | | | | | 01/03/20 | | | | | 18, | | | | | 01/02/20 | | | | | 17, | | | | | Addition | | | | | al | | | | | history | | | | | exists | | + + + + + Results Not on filefrom Last 3 Months Insurance + +--------+ +--------+ +---------+------+ | Payer | Benefi | Subscriber | Effect | Phone | Address | Type | | | t Plan | ID | naye | | | | | | / | | Dates | | | | | | Group | | | | | | + +--------+ +--------+ +---------+------+ | [employer] | PACIFI | [id number] | 03/24/19 | [phone] | | PPO | | | [facility] | | 19-Pre | 2 | | | | | E | | sent | | | | | | FIRST | | | | | | | | CHOICE | | | | | | + +--------+ +--------+ +---------+------+ + +--------+ +--------+ + + | Guarantor Name | Accoun | Relation to | Date | Phone | Billing Address | | | t Type | Patient | of | | | | | | | | | | + +--------+ +--------+ + + | Josephine Saxena | Person | Self | [birth year] | | [place], | | | [place] | | 1975 | [phone] | [place] [address] | | | cr | | | 0 (Home) | | | | | | | [phone] | | | | | | | 0 (Work) | | + +--------+ +--------+ + + | Josephine Saxena | Person | Self | [birth year] | | [address] [place], | | | [place] | | 1976 | [phone] | [place] [address] | | | cr | | | 0 (Home) | | | | | | | [phone] | | | | | | | 0 (Work) | | + +--------+ +--------+ + + Advance Directives + + + + + | Type | Date Recorded | Patient | Explanation | | | | Area Operations Manager | | + + + + + | Power of | | | | | Straight Cutter Machine | | | | + + + + + | Advance | | | | | Directive | | | | + + + + +
--- OUTSIDE RECORDS SUMMARY | ~2019-11-09 | XMS | Encounter Summary ---
Demographics + + + | Address | [address] | | | [place] [address] | + + + | Home Phone | | + + + | Preferred Language | Unknown | + + + | Marital Status | | + + + | Confucianist Affiliation | 1013 | + + + | Race | White | + + + | Ethnic Group | Not or | + + + Author + + + | Author | [facility] | | | and [place] | + + + | Organization | [facility] | | | and [...] Team Providers + +------+ + | Care Donor Services Team Leader Name | Role | Phone | + +------+ + | Lubna Marie PA-C | PCP | | + +------+ + Encounter Details +--------+ + + + + | Date | Type | Department | Care Team | Description | +--------+ + + + + | 01/09/ | Orders Only | [facility] | Lubna Marie, | | | 2015 | | [address] | PA-C [address] | | | | | [place], [place] | [address] | | | | | [address] | [place] [address] | | | | | [phone] | [phone] | | | | | | | [...] | + +--------+ + + + | PROLACTIN | Routin | 01/10/2016 | | Results for this | | | e | 9:30 AM | | procedure are in the | | | | PDT | | results section. | + +--------+ + + + | T3, FREE | Routin | 01/10/2016 | | Results for this | | | e | 9:30 AM | | procedure are in the | | | | PDT | | results section. | + +--------+ + + + | TSH | Routin | 01/10/2016 | | Results for this | | | e | 9:30 AM | | procedure are in the | | | | PDT | | results section. | + +--------+ + + + | T4, FREE | Routin | 01/10/2016 | | Results for this | | | e | 9:30 AM | | procedure are in the | | | | PDT | | results section. | + +--------+ + + + documented in this encounter Results Prolactin (01/10/2016 9:30 AM PDT) + + + + + + | Component | Value | Ref Range | Performed | Pathologist | | | | | At | Signature | + + + + + + | Prolactin | 6.1Comment: | ng/mL | EXTERNAL | | | | Non: 2.8 to | | LAB | | | | 29.2 : | | | | | | 9.7 to 208.5 | | | | | | Postmenopausal: 1.8 to | | | | | | 20.3 | | | | + + + + + + + + | Specimen | + + | Blood specimen | | (specimen) | + + + +---------+ + + | Performing | Address | City/State/Zipcode | Phone Number | | Organization | | | | + +---------+ + + | EXTERNAL LAB | | | | + +---------+ + + T3, Free (01/10/2016 9:30 AM PDT) + +-------+ + + + | Component | Value | Ref Range | Performed | Pathologist | | | | | At | Signature | + +-------+ + + + | T3, Free | 2.8 | 2.18 - 3.98 | EXTERNAL | | | | | pg/mL | LAB | | + +-------+ + + + + + | Specimen | + + | Blood specimen | | (specimen) | + + + +---------+ + + | Performing | Address | City/State/Zipcode | Phone Number | | Organization | | | | + +---------+ + + | EXTERNAL LAB | | | | + +---------+ + + TSH (01/10/2016 9:30 AM PDT) + +-------+ + + + | Component | Value | Ref Range | Performed | Pathologist | | | | | At | Signature | + +-------+ + + + | TSH | 2.34 | 0.45 - 5.10 | EXTERNAL | | | | | u[iU]/mL | LAB | | + +-------+ + + + + + | Specimen | + + | Blood specimen | | (specimen) | + + + +---------+ + + | Performing | Address | City/State/Zipcode | Phone Number | | Organization | | | | + +---------+ + + | EXTERNAL LAB | | | | + +---------+ + + T4, Free (01/10/2016 9:30 AM PDT) + +-------+ + + + | Component | Value | Ref Range | Performed | Pathologist | | | | | At | Signature | + +-------+ + + + | FREE T4 | 0.9 | 0.7 - 1.5 ng/dL | EXTERNAL | | | (REF) | | | LAB | | + +-------+ + + + + + | Specimen [...]
--- OUTSIDE RECORDS SUMMARY | ~2019-11-09 | XMS | Encounter Summary ---
Demographics + + + | Address | [address] | | | [place] [address] | + + + | Home Phone | | + + + | Preferred Language | Unknown | + + + | Marital Status | | + + + | Latter Day Affiliation | 1013 | + + + | Race | White | + + + | Ethnic Group | Not or | + + + Author + + + | Author | [facility] | | | and [place] | + + + | Organization | [facility] | | [...] Team Providers + +------+ + | Care Marble Carver Name | Role | Phone | + +------+ + PCP | Unavailable | + +------+ + Encounter Details +--------+ + + + + | Date | Type | Department | Care Team | Description | +--------+ + + + + | 11/13/ | Hospital | [facility] | Conversion | Breast pain, left | | 2011 | Encounter | IMAGING SERVICES | Transaction, | | | | | [address] | Provider Unknown | | | | | [address] [place], [place] | [phone] | | | | | [address] | | | | | | [phone] | Lubna Marie PA-C | | | | | | [address] | | | | | | [address] [place], | | | | | | [place] [address] | | | | | | [phone] | | | | | | | [...] + +--------+ + + + | THERESE DIGITAL | Routin | 11/14/2011 | | Results for this | | DIAGNOSTIC BILATERAL | e | 8:53 AM | | procedure are in the | | | | PDT | | results section. | + +--------+ + + + documented in this encounter Results THERESE Digital Diagnostic Bilateral (11/14/2011 8:53 AM PDT) + + | Specimen | + + | | + + + + + | Narrative | Performed At | + + + | HISTORY: 36 years. Female. Intermittent left superior breast | | | pain, which has resolved. History of bilateral breast reduction | | | surgery. TECHNIQUE: Digital bilateral CC and MLO views with CAD | | | utilized. Additionally, a left true lateral view was obtained. | | | COMPARISON: Mammograms dating from September 09, 2002 until February 01, | | | 2008. FINDINGS: Scattered unchanged fibroglandular elements are | | | noted, without dominant mass. No suspicious cluster of | | | microcalcification is identified with scattered benign punctate | | | calcifications again noted. No secondary signs of malignancy are seen. | | | IMPRESSION: 1. No mammographic evidence of malignancy. 2. | | | ACR BI-RADS category 1: Negative. | | + + + + + | Procedure Note | + + | Tino Cain Elie - 11/14/2018 2:16 AM PDT HISTORY:36 years. Female. | | Intermittent left superior breast pain, which has resolved. History of bilateral breast | | reduction surgery. TECHNIQUE:Digital bilateral CC and MLO views with CAD utilized. | | Additionally, a left true lateral view was obtained. COMPARISON:Mammograms dating from | | September 09, 2002 until February 01, 2009. FINDINGS:Scattered unchanged fibroglandular | | elements are noted, without dominant mass. No suspicious cluster of microcalcification | | is identified with scattered benign punctate calcifications again noted. No secondary | | signs of malignancy are seen. IMPRESSION:1. No mammographic evidence of malignancy. 2. | | ACR BI-RADS category 1: Negative. Electronically signed by Josh Lehman MD on | | 11/14/2011 8:59 AM | |Scattered unchanged fibroglandular elements are noted, without dominant mass. No suspicious cluster of microcalcification is identified with scattered benign punctate calcifications a gain noted. No secondary signs of malignancy are seen. | | | |IMPRESSION: | |1. No mammographic evidence of malignancy. | | | |2. ACR BI-RADS category 1: Negative. | | | | | + + documented in this encounter Visit Diagnoses + + | Diagnosis | + + | Breast pain, left Mastodynia | + + documented in this encounter"
--- OUTSIDE RECORDS SUMMARY | ~2019-11-09 | XMS | Encounter Summary ---
Demographics + + + | Address | [address] | | | [place] [address] | + + + | Home Phone | | + + + | Preferred Language | Unknown | + + + | Marital Status | | + + + | Shinto Affiliation | 1013 | + + + | Race | White | + + + | Ethnic Group | Not or | + + + Author + + + | Author | [facility] | | | and [place] | + + + | Organization | [facility] | | | and [...] Team Providers + +------+ + | Care Assistant Operations Manager Name | Role | Phone | + +------+ + PCP | Unavailable | + +------+ + Encounter Details +--------+ + + + + | Date | Type | Department | Care Team | Description | +--------+ + + + + | 12/30/ | [facility] | [facility] | Conversion | Other screening | | 2014 | Encounter | IMAGING SERVICES | Transaction, | mammogram | | | | [address] | Provider Unknown | | | | | [address] [place], [place] | | | | | | [address] | (Fax) | | | | | [phone] | | | +--------+ + + + [...] + | THERESE TOMOSYN | Routin | 12/30/2013 | | Results for this | | SCREENING BILATERAL | e | 9:44 AM | | procedure are in the | | | | PDT | | results section. | + +--------+ + + + documented in this encounter Results THERESE Tomosynthesis Screening Bilateral (12/30/2013 9:44 AM PDT) + + | Specimen | + + | | + + + + + | Impressions | Performed At | + + + | 1. Stable examination, without evidence of malignancy to screening | | | technique BIRADS - 1 - negative screening mammogram. Advise | | | the continuance of annual screening. Note: Patient informed of | | | the above by standard letter. General breast imaging addendum: 10-15% | | | of palpable breast abnormalities may not be visualized on | | | mammography. Negative imaging of the breasts should not postpone | | | further evaluation of a clinically significant palpable abnormality. | | | | | | 11:34 AM | | + + + + + + | Narrative | Performed At | + + + | HISTORY: 38 years old asymptomatic female with intermediate elevated | | | risk of breast cancer on the basis of family and personal history. | | | TECHNIQUE: Bilateral screening digital MLO and CC views of breast | | | tissue. Examination performed with additional 3D tomographic views, | | | tomosynthesis. Viewed with benefit of computer assisted | | | detection. Prior study: November 18, 2012 through 03 December 2006 | | | FINDINGS : The breast parenchyma is scattered fibroglandular | | | tissue. No suspicious masses, calcifications, new or worrisome | | | densities. There is no skin thickening, lymphadenopathy or secondary | | | sign of malignancy. No findings identified as worrisome via computer | | | assisted detection. The right axillary lymph node is unchanged as | | | are the scattered rests of denser tissue seen elsewhere One or | | | more densities noted, which are not revealed as worrisome upon 3D | | | analysis. | | + + + + + | Procedure Note | + + | Tino, Rad Conversion - 11/06/2018 5:36 PM PDT HISTORY: 38 years old asymptomatic | | female with intermediate elevated risk of breast cancer on the basis of family and | | personal history. TECHNIQUE: Bilateral screening digital MLO and CC views of breast | | tissue. Examination performed with additional 3D tomographic views, tomosynthesis. | | Viewed with benefit of computer assisted detection. Prior study: November 18, 2012 through | | 03 December 2006 FINDINGS :The breast parenchyma is scattered fibroglandular tissue. | | No suspicious masses, calcifications, new or worrisome densities. There is no skin | | thickening, lymphadenopathy or secondary sign of malignancy. No findings identified as | | worrisome via computer assisted detection. The right axillary lymph node is unchanged as | | are the scattered rests of denser tissue seen elsewhere One or more densities noted, | | which are not revealed as worrisome upon 3D analysis. IMPRESSION: 1. Stable examination, | | without evidence of malignancy to screening technique BIRADS - 1 - negative screening | | mammogram. Advise the continuance of annual screening. Note:Patient informed of the | | above by standard letter.General breast imaging addendum: 10-15% of palpable breast | | abnormalities may not be visualized on mammography. Negative imaging of the breasts | | should not postpone further evaluation of a clinically significant palpable abnormality. | | | | | | | | | |BIRADS - 1 - [...]
--- OUTSIDE RECORDS SUMMARY | ~2019-11-09 | XMS | Encounter Summary ---
Demographics + + + | Address | [address] | | | [place] [address] | + + + | Home Phone | | + + + | Preferred Language | Unknown | + + + | Marital Status | | + + + | Episcopalian Affiliation | 1013 | + + + | Race | White | + + + | Ethnic Group | Not or | + + + Author + + + | Author | [facility] | | | and [place] | + + + | Organization | [facility] | | | [...] Team Providers + +------+ + | Care Pharmacy Specialist Name | Role | Phone | + +------+ + PCP | Unavailable | + +------+ + Encounter Details +--------+ + + + + | Date | Type | Department | Care Team | Description | +--------+ + + + + | 09/09/ | Hospital | [facility] | | PREOP EXAM OTHER | | 2002 | Encounter | [address] | | SPECIFIED | | | | [address] | | | | | | [place], [place] | | | | | | [address] | | | | | | [phone] | | | +--------+ + + + [...] Not on filedocumented as of this encounter Visit Diagnoses + + | Diagnosis | + + | Other specified pre-operative examination | + + documented in this encounter"
--- OUTSIDE RECORDS SUMMARY | ~2019-11-09 | XMS | Encounter Summary ---
Demographics + + + | Address | [address] | | | [place] [address] | + + + | Home Phone | | + + + | Preferred Language | Unknown | + + + | Marital Status | | + + + | Faith Affiliation | 1013 | + + + | Race | White | + + + | Ethnic Group | Not or | + + + Author + + + | Author | [facility] | | | and [place] | + + + | Organization | [facility] | | | [...] Team Providers + +------+ + | Care Licensed Embalmer Supervisor Name | Role | Phone | + +------+ + PCP | Unavailable | + +------+ + Encounter Details +--------+ + + + + | Date | Type | Department | Care Team | Description | +--------+ + + + + | 03// | Hospital | [facility] | Roel Bello | Migraine, | | 2000 | Encounter | [address] | [place] [phone] | unspecified, without | | | | [address] | (Fax) | mention of | | | | [place] | | intractable migraine | | | | [address] | | without mention of | | | | [phone] | | status migrainosus | +--------+ + + + + Social [...] + | Diagnosis | + + | Migraine, unspecified, without mention of intractable migraine without mention of | | status migrainosus | + + documented in this encounter"
--- OUTSIDE RECORDS SUMMARY | ~2019-11-09 | XMS | Encounter Summary ---
Demographics + + + | Address | [address] | | | [place] [address] | + + + | Home Phone | | + + + | Preferred Language | Unknown | + + + | Marital Status | | + + + | Anabaptism Affiliation | 1013 | + + + | Race | White | + + + | Ethnic Group | Not or | + + + Author + + + | Author | [facility] | | | and [place] | + + + | Organization | [facility] | | | [...] Team Providers + +------+ + | Care Translator Deaf Name | Role | Phone | + +------+ + | Lubna Marie PA-C | PCP | | + +------+ + Encounter Details +--------+ + + + + | Date | Type | Department | Care Team | Description | +--------+ + + + + | 01/11/ | Hospital | [facility] | Lubna Marie, | Breast cancer | | 2019 | Encounter | IMAGING SERVICES | [address] | screening | | | | [address] | [address] | | | | | [address] [place], [place] | [place] [address] | | | | | [address] | [phone] | | | | | [phone] | | | +--------+ + + + [...] + | THERESE TOMOSYN | Routin | 01/11/2019 | Breast cancer | Results for this | | SCREENING BILATERAL | e | 10:33 AM | screening | procedure are in the | | | | PDT | | results section. | + +--------+ + + + documented in this encounter Results THERESE Tomosynthesis Screening Bilateral (01/11/2019 10:33 AM PDT) + + | Specimen | + + | | + + + + + | Impressions | Performed At | + + + | BIRADS ASSESSMENT: Negative / CATEGORY 1. RECOMMENDATION: Screening | [facility] | | mammogram in one year per ACR ([employer] [employer]) and SBI | | | (Society of Breast Imaging) guidelines. Per National MQSA | | | guidelines, a letter of notification will be sent to the patient. | | | Signed by: Kassi Lehman Sean Sign Date/Time: 01/11/2019 | | | 10:56 AM | | + + + + + + | Narrative | Performed At | + + + | [facility]ESIA DIGITAL SCREENING MAMMOGRAM BILATERAL CLINICAL | [facility] | | INFORMATION: Screening mammogram. Currently asymptomatic for breast | | | disease. Family history of breast cancer in her maternal aunt at age | | | 89, maternal grandmother in her 60s, and paternal grandmother at 60. | | | History of bilateral breast reduction surgery. COMPARISON: | | | MAMMO SCREEN COMBO HD BILATERAL (01/02/2018); MAMMO SCREEN COMBO HD | | | BILATERAL (01/01/2017); MAMMO SCREEN COMBO HD BILATERAL (01/10/2016); | | | MAMMO SCREEN COMBO HD BILATERAL (12/22/2014); MAMMO SCREEN COMBO HD | | | BILATERAL (12/30/2013); MAMMO SCREENING BILATERAL (11/18/2012); | | | PROCEDURE: Tomosynthesis and conventional digital CC and MLO views | | | were obtained. Computerized aided detection software was utilized. | | | MAMMOGRAPHIC FINDINGS: Breast Composition: Scattered fibroglandular | | | densities. Mass: No significant or suspicious mass. | | | Asymmetry/Architectural Distortion: None of significance. | | | Calcifications: None of significance. | | + + + + +---------+ + + | Performing | Address | City/State/Zipcode | Phone Number | | Organization | | | | + +---------+ + + | [facility] | | | | + +---------+ + + documented in this encounter Visit Diagnoses + + | Diagnosis | + + | Breast cancer screening Breast screening, unspecified | + + documented in this encounter"
--- OUTSIDE RECORDS SUMMARY | ~2019-11-09 | XMS | Encounter Summary ---
Demographics + + + | Address | [address] | | | [place] [address] | + + + | Home Phone | | + + + | Preferred Language | Unknown | + + + | Marital Status | | + + + | Advent Affiliation | 1013 | + + + | Race | White | + + + | Ethnic Group | Not or | + + + Author + + + | Author | [facility] | | | and [place] | + + + | Organization | [facility] | | | [...] Team Providers + +------+ + | Care Hot Die Press Operator Name | Role | Phone | + +------+ + | Lubna Marie PA-C | PCP | | + +------+ + Encounter Details +--------+ + + + + | Date | Type | Department | Care Team | Description | +--------+ + + + + | 10/12/ | Orders Only | [facility] | Lubna Marie, | | | 2014 | | ASSOCIATED | [address] | | | | | [facility] | [address] | | | | | [address] | [place] [address] | | | | | [address] [place], | [phone] | | | | | [place] [address] | | | | | | [phone] | | | +--------+ + + + [...] | + +--------+ + + + | CULTURE, URINE | Routin | 10/12/2014 | | Results for this | | | e | 5:03 PM | | procedure are in the | | | | PDT | | results section. | + +--------+ + + + documented in this encounter Results Culture, Urine (10/12/2014 5:03 PM PDT) + + | Specimen | + + | Urine specimen | | (specimen) | + + + + + | Narrative | Performed At | + + + | Specimen Description URINE, COLLECTION NOT | EXTERNAL LAB | | GIVEN CULTURE NO GROWTH | | | Testing performed | | | at [facility];[address];[place] [address] | | + + + + +---------+ + + | Performing | Address | City/State/Zipcode | Phone Number | | Organization | | | | + +---------+ + + | EXTERNAL LAB | | | | + +---------+ + + documented in this encounter Visit Diagnoses Not on filedocumented in this encounter"
--- OUTSIDE RECORDS SUMMARY | ~2019-11-09 | XMS | Encounter Summary ---
Demographics + + + | Address | [address] | | | [place] [address] | + + + | Home Phone | | + + + | Preferred Language | Unknown | + + + | Marital Status | | + + + | Restorationist Affiliation | 1013 | + + + | Race | White | + + + | Ethnic Group | Not or | + + + Author + + + | Author | [facility] | | | and [place] | + + + | Organization | [facility] | | | [...] Team Providers + +------+ + | Care Trolley Car Mechanic Name | Role | Phone | + +------+ + PCP | Unavailable | + +------+ + Encounter Details +--------+ + + + + | Date | Type | Department | Care Team | Description | +--------+ + + + + | 11/18/ | [facility] | [facility] | Conversion | Other screening | | 2013 | Encounter | IMAGING SERVICES | Transaction, | mammogram | | | | [address] | Provider Unknown | | | | | [address] [place], [place] | | | | | | [address] | (Fax) | | | | | [phone] | | | +--------+ + + + [...] + | THERESE DIGITAL | Routin | 11/18/2012 | | Results for this | | SCREENING BILATERAL | e | 4:39 PM | | procedure are in the | | | | PDT | | results section. | + +--------+ + + + documented in this encounter Results THERESE Digital Screening Bilateral (11/18/2012 4:39 PM PDT) + + | Specimen | + + | | + + + + + | Narrative | Performed At | + + + | HISTORY: 37 year old asymptomatic female without here documented | | | elevated risk of breast cancer on the basis of family and personal | | | history. TECHNIQUE: bilateral screening digital MLO and CC views of | | | breast tissue. Supplemented with exaggerated right CC image. Viewed | | | with benefit of computer assisted detection. Prior studies : 23 | | | October 2011 through 03 December 2006 FINDINGS : The breast | | | parenchyma is with scattered fibroglandular tissue. Patient is post | | | reduction. A few small lymph nodes are unchanged. No suspicious | | | masses, calcifications, new or worrisome densities. There is no skin | | | thickening, lymphadenopathy or secondary sign of malignancy. No | | | findings identified as worrisome via computer assisted detection. No | | | evidence of malignancy by this screening technique. IMPRESSION: | | | 1. Negative screening mammogram. Recommend annual screening or | | | surveillance absent clinical indications otherwise. BIRADS - 1. | | | Negative screening mammogram. Note: Patient informed of the above by | | | standard letter. General breast imaging addendum: 10-15% of palpable | | | breast abnormalities may not be visualized on mammography. Negative | | | imaging of the breasts should not postpone further evaluation of a | | | clinically significant palpable abnormality. Electronically | | | signed by Juan J Santana MD on 11/18/2012 4:48 PM | | + + + + + | Procedure Note | + + | Tino, Rad Conversion - 11/13/2018 5:03 PM PDT HISTORY: 37 year old asymptomatic | | female without here documented elevated risk of breast cancer on the basis of family and | | personal history.TECHNIQUE: bilateral screening digital MLO and CC views of breast | | tissue. Supplemented with exaggerated right CC image. Viewed with benefit of computer | | assisted detection.Prior studies : 14 November 2011 through 03 December 2006FINDINGS :The | | breast parenchyma is with scattered fibroglandular tissue. Patient is post reduction. A | | few small lymph nodes are unchanged.No suspicious masses, calcifications, new or | | worrisome densities. There is no skin thickening, lymphadenopathy or secondary sign of | | malignancy. No findings identified as worrisome via computer assisted detection.No | | evidence of malignancy by this screening technique. IMPRESSION:1. Negative screening | | mammogram. Recommend annual screening or surveillance absent clinical indications | | otherwise. BIRADS - 1. Negative screening mammogram.Note:Patient informed of the above | | by standard letter.General breast imaging addendum: 10-15% [...]
--- OUTSIDE RECORDS SUMMARY | ~2019-11-09 | XMS | Encounter Summary ---
Demographics + + + | Address | [address] | | | [place] [address] | + + + | Home Phone | | + + + | Preferred Language | Unknown | + + + | Marital Status | | + + + | Denominational Affiliation | 1013 | + + + | Race | White | + + + | Ethnic Group | Not or | + + + Author + + + | Author | [facility] | | | and [place] | + + + | Organization | [facility] | | [...] Team Providers + +------+ + | Care Maxillofacial Surgeon Name | Role | Phone | + +------+ + PCP | Unavailable | + +------+ + Encounter Details +--------+ + + + + | Date | Type | Department | Care Team | Description | +--------+ + + + + | 10/08/ | Hospital | [facility] | Roel Bello | Routine | | 2006 | Encounter | CONVERSION [address] | Reynaldo [phone] | Gynecological | | | | [address] | (Fax) | Examination | | | | [place], [place] | | | | | | [address] | | | | | | [phone] | | | +--------+ + + + [...] + | Diagnosis | + + | Routine gynecological examination | + + documented in this encounter"
--- OUTSIDE RECORDS SUMMARY | ~2019-11-09 | XMS | Encounter Summary ---
Demographics + + + | Address | [address] | | | [place] [address] | + + + | Home Phone [...] + + + | Author | [facility] | | | and [place] | + + + | Organization | [facility] | | [...] Team Providers + +------+ + | Care Manager Transplant Name | Role | Phone | + +------+ + PCP | Unavailable | + +------+ + Encounter Details +--------+ + + + + | Date | Type | Department | Care Team | Description | +--------+ + + + + | 10/07/ | Hospital | [facility] | Conversion | Prolactinoma (HCC) | | 2012 | Encounter | [facility] | Transaction, | | | | | [address] | Provider Unknown | | | | | [place] | [phone] | | | | | [address] | | | | | | [phone] | Shanti Brunner MD | | | | | | [address] | | | | | | [place], [place] | | | | | | [address] | | | | | | | [...] | + +--------+ + + + | MRI PITUITARY W WO | Routin | 10/08/2011 | | Results for this | | CONTRAST | e | 7:30 AM | | procedure are in the | | | | PDT | | results section. | + +--------+ + + + documented in this encounter Results MRI Pituitary w wo Contrast (10/08/2011 7:30 AM PDT) + + | Specimen | + + | | + + + + + | Narrative | Performed At | + + + | [facility] MRI PITUITARY W WO CONTRAST 10/08/2011 7:10 AM | | | HISTORY: 36 years. Female. Recently worsening headaches. | | | History of empty sella syndrome and prolactinoma. TECHNIQUE: | | | Imaging was performed on a 1.5 Rosemary MRI system. Multiplanar | | | sequences were acquired according to a standard department protocol | | | with and without contrast. Contrast: MultiHance. Dose: 20 mL. | | | COMPARISON: MRI brain 06/14/2000 FINDINGS: The brain parenchyma | | | demonstrates normal architectural features and signal intensity on all | | | sequences. Following contrast administration, no abnormal | | | enhancement is seen within the brain parenchyma, leptomeninges or | | | dura. The ventricles, cisterns and sulci are normal in size and | | | configuration. No extraaxial fluid collections are noted. The | | | midline structures including the corpus callosum, melvina, cerebellar | | | vermis and pineal gland are normal. High-resolution imaging of the | | | pituitary including dynamic postcontrast sequences demonstrates a | | | normal size and appearance of the pituitary gland. No mass is seen | | | in the sella or suprasellar regions. The pituitary infundibulum is | | | midline. A normal T1 hyperintense neurohypophysis is seen. | | | Following contrast administration, no areas of hypo-enhancement are | | | seen within the pituitary to suggest the presence of a microadenoma. | | | The flow voids of the internal carotid arteries within the cavernous | | | sinuses are normal. The optic chiasm is normal. No masses are | | | seen in the region of the cerebellopontine angles or internal | | | auditory canals. The orbits and their contents are normal. The | | | paranasal sinuses are well aerated. No air-fluid levels or mucosal | | | thickening is noted. No fluid seen in the mastoids. The osseous | | | structures of the calvaria and upper cervical spine demonstrate normal | | | bone marrow signal intensity. The soft tissues of the oropharynx | | | and upper neck appear normal on the sagittal sequences. The | | | intracranial arteries and dural venous sinuses demonstrate normal | | | flow voids on the T2 sequences and enhance normally following | | | contrast. No large aneurysm or dural venous sinus thrombosis is | | | noted. IMPRESSION: 1. Normal examination of the pituitary. No | | | evidence of a pituitary macroadenoma or microadenoma. 2. Normal | | | MRI examination of the brain. | | + + + + + | Procedure Note | + + | Tino, Rad Conversion - 11/14/2018 2:16 AM PDT [facility] CRU[facility] PITUITARY W WO | | CONTRAST10/08/2011 7:10 AM HISTORY:36 years. Female. Recently worsening headaches. | | History of empty sella syndrome and prolactinoma. TECHNIQUE:Imaging was performed on a | | 1.5 Rosemary MRI system. Multiplanar sequences were acquired according to a standard | | department protocol with and without contrast.Contrast: MultiHance. Dose: 20 mL. | | COMPARISON:MRI brain 06/14/2000 FINDINGS:The brain parenchyma demonstrates normal | | architectural features and signal intensity on all sequences. Following contrast | | administration, no abnormal enhancement is seen within the brain parenchyma, | | leptomeninges or dura. The ventricles, cisterns and sulci are normal in size and | | configuration. No extraaxial fluid collections are noted. The midline structures | | including the corpus callosum, melvina, cerebellar vermis and pineal gland are normal. | | High-resolution imaging of the pituitary including dynamic postcontrast sequences | | demonstrates a normal size and appearance of the pituitary gland. No mass is seen in | | the sella or suprasellar regions. The pituitary infundibulum is midline. A normal T1 | | hyperintense neurohypophysis is seen. Following contrast administration, no areas of | | hypo-enhancement are seen within the pituitary to suggest the presence of a | | microadenoma. The flow voids of the internal carotid arteries within the cavernous | | sinuses are normal. The optic chiasm is normal. No masses are seen in the region of the | | cerebellopontine angles or internal auditory canals. The orbits and their contents are | | normal. The paranasal sinuses are well aerated. No air-fluid levels or mucosal | | thickening is noted. No fluid seen in the mastoids. The osseous structures of the | | calvaria and upper cervical spine demonstrate normal bone marrow signal intensity. The | | soft tissues of the oropharynx and upper neck appear normal on the sagittal sequences. | | The intracranial arteries and dural venous sinuses demonstrate normal flow voids on the | | T2 sequences and enhance normally following contrast. No large aneurysm or dural venous | | sinus thrombosis is noted. IMPRESSION:1. Normal examination of the pituitary. No | | evidence of a pituitary macroadenoma or microadenoma.2. Normal MRI examination of the | | brain. | |venous sinuses demonstrate normal flow voids on the T2 sequences and enhance normally follo wing contrast. No large aneurysm or dural venous sinus thrombosis is noted. | | | |IMPRESSION: | |1. Normal examination of the pituitary. No evidence of a pituitary macroadenoma or microa denoma. | |2. Normal MRI examination of the brain. 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
--- OUTSIDE RECORDS SUMMARY | ~2019-11-09 | XMS | Encounter Summary ---
Demographics + + + | Address | [address] | | | [place] [address] | + + + | Home Phone | | + + + | Preferred Language | Unknown | + + + | Marital Status | | + + + | Buddhist Affiliation | 1013 | + + + | Race | White | + + + | Ethnic Group | Not or | + + + Author + + + | Author | [facility] | | | and [place] | + + + | Organization | [facility] | | | and [...] Team Providers + +------+ + | Care Bag Cutter Name | Role | Phone | + +------+ + PCP | Unavailable | + +------+ + Encounter Details +--------+ + + + + | Date | Type | Department | Care Team | Description | +--------+ + + + + | 09/02/ | Hospital | [facility] | Conversion | Thyroid nodule | | 2018 | Encounter | [facility] | Transaction, | | | | | ULTRASOUND [address] | Provider Unknown | | | | | [address] | [phone] | | | | | [place], [place] | | | | | | [address] | Lubna Marie PA-C | | | | | [phone] | [address] | | | | | | [address] [place], | | | | | | [place] [address] | | | | | | [phone] | | | | | | | [...] | + +--------+ + + + | US THYROID | Routin | 09/02/2017 | | Results for this | | | e | 3:45 PM | | procedure are in the | | | | PDT | | results section. | + +--------+ + + + documented in this encounter Results US Thyroid (09/02/2017 3:45 PM PDT) + + | Specimen | + + | | + + + + + | Impressions | Performed At | + + + | 1. Nonspecific slight heterogeneity of the thyroid parenchyma, may | | | reflect thyroiditis in the appropriate clinical setting. 2. There | | | are unchanged small bilateral thyroid nodules seen. The largest nodule | | | in the right lobe appears to have been previously biopsied and | | | correlation with prior biopsy results is recommended. | | | | | + + + + + + | Narrative | Performed At | + + + | [facility] 1975 US THYROID 09/02/2017 3:45 PM | | | HISTORY: Thyroid nodule. TECHNIQUE: Grayscale and color Doppler | | | techniques were utilized with a linear transducer. COMPARISON: | | | Thyroid ultrasound 10/12/2014. FINDINGS: Parenchymal | | | echotexture: Appears slightly heterogeneous. Right lobe: Measures | | | 4.9 cm x 1.5 cm x 1.3 cm. -In the lower midportion there is a 1.1 cm | | | x 0.8 cm x 0.6 cm nodule seen, unchanged. -In the mid medial portion | | | there is a 0.6 m x 0.5 cm x 0.4 cm nodule seen, unchanged. Left | | | lobe: Measures 4.5 cm x 1.6 cm x 1.4 cm. -In the lower midportion | | | there is a 0.7 cm x 0.5 cm x 0.3 cm nodule seen, unchanged. | | | Isthmus: 3 mm in thickness. | | + + + + + | Procedure Note | + + | Tino, Rad Conversion - 11/04/2018 3:07 AM PDT [facility] [id number] | | THYROID09/02/2017 3:45 PM HISTORY: Thyroid nodule. TECHNIQUE: Grayscale and color Doppler | | techniques were utilized with a linear transducer. COMPARISON: Thyroid ultrasound | | 10/12/2014. FINDINGS: Parenchymal echotexture: Appears slightly heterogeneous. Right | | lobe: Measures 4.9 cm x 1.5 cm x 1.3 cm.-In the lower midportion there is a 1.1 cm x 0.8 | | cm x 0.6 cm nodule seen, unchanged.-In the mid medial portion there is a 0.6 m x 0.5 cm | | x 0.4 cm nodule seen, unchanged. Left lobe: Measures 4.5 cm x 1.6 cm x 1.4 cm.-In the | | lower midportion there is a 0.7 cm x 0.5 cm x 0.3 cm nodule seen, unchanged. Isthmus: 3 | | mm in thickness. IMPRESSION: 1. Nonspecific slight heterogeneity of the thyroid | | parenchyma, may reflect thyroiditis in the appropriate clinical setting.2. There are | | unchanged small bilateral thyroid nodules seen. The largest nodule in the right lobe | | appears to have been previously biopsied and correlation with prior biopsy results is | | recommended. | |Parenchymal echotexture: Appears slightly heterogeneous. | | | |Right lobe: Measures 4.9 cm x 1.5 cm x 1.3 cm. | |-In the lower midportion there is a 1.1 cm x 0.8 cm x 0.6 cm nodule seen, unchanged. | |-In the mid medial portion there is a 0.6 m x 0.5 cm x 0.4 cm nodule seen, unchanged. | | | |Left lobe: Measures 4.5 cm x 1.6 cm x 1.4 cm. | |-In the lower midportion there is a 0.7 cm x 0.5 cm x 0.3 cm nodule seen, unchanged. | | | |Isthmus: 3 mm in thickness. | | | |IMPRESSION: | |1. Nonspecific slight heterogeneity of the thyroid parenchyma, may reflect thyroiditis in the appropriate clinical setting. | |2. There are unchanged small bilateral thyroid nodules seen. The largest nodule in the rig ht lobe appears to have been previously biopsied and correlation with prior biopsy results i s recommended. | | | | | + + documented in this encounter Visit Diagnoses + + | Diagnosis | + + | Thyroid nodule Nontoxic uninodular goiter | + + documented in this encounter"
--- OUTSIDE RECORDS SUMMARY | ~2019-11-09 | XMS | Encounter Summary ---
Demographics + + + | Address | [address] | | | [place] [address] | + + + | Home Phone | | + + + | Preferred Language | Unknown | + + + | Marital Status | | + + + | Alevism Affiliation | 1013 | + + + [...] Team Providers + +------+ + | Care Larriman Name | Role | Phone | + +------+ + PCP | Unavailable | + +------+ + Encounter Details +--------+ + + + + | Date | Type | Department | Care Team | Description | +--------+ + + + + | 12/03/ | Hospital | [facility] | Roel Bello | Other Screening | | 2006 | Encounter | CONVERSION [address] | [address] [phone] | Mammogram | | | | [address] | (Fax) | | | | | [place] | | | | | | [address] | | | | | | [phone] | | | +--------+ + + + [...]
--- OUTSIDE RECORDS SUMMARY | ~2019-11-09 | XMS | Encounter Summary ---
Demographics + + + | Address | [address] | | | [place] [address] | + + + | Home Phone | | + + + | Preferred Language | Unknown | + + + | Marital Status | | + + + | Scientologist Affiliation | 1013 | + + + | Race | White | + + + | Ethnic Group | Not or | + + + Author + + + | Author | [facility] | | | and [place] | + + + | Organization | [facility] | | | [...] Team Providers + +------+ + | Care Supervisor Braiding Name | Role | Phone | + +------+ + PCP | Unavailable | + +------+ + Encounter Details +--------+ + + + + | Date | Type | Department | Care Team | Description | +--------+ + + + + | 08/05/ | Hospital | [facility] | Roel Bello | | | 2000 | Encounter | CONVERSION [address] | [address] [phone] | | | | | [address] | (Fax) | | | | | [place] | | | | | | [address] | | | | | | [phone] | | | +--------+ + + + [...] filedocumented as of this encounter Visit Diagnoses Not on filedocumented in this encounter"
--- OUTSIDE RECORDS SUMMARY | ~2019-11-09 | XMS | Encounter Summary ---
Demographics + + + | Address | [address] | | | [place] [address] | + + + | Home Phone | | + + + | Preferred Language | Unknown | + + + | Marital Status | | + + + | Adventist Affiliation | 1013 | + + + | Race | White | + + + | Ethnic Group | Not or | + + + Author + + + | Author | [facility] | | | and [place] | + + + | Organization | [facility] | | | [...] Team Providers + +------+ + | Care Blender Operator Name | Role | Phone | + +------+ + PCP | Unavailable | + +------+ + Encounter Details +--------+ + + + + | Date | Type | Department | Care Team | Description | +--------+ + + + + | 08/07/ | Hospital | [facility] | Roel Bello | Routine | | 2000 | Encounter | CONVERSION [address] | [address] [phone] | follow-up | | | | [address] | (Fax) | | | | | [place], [place] | | | | | | [address] | | | | | | [phone] | | | +--------+ + + + [...] | Diagnosis | + + | Routine follow-up | + + documented in this encounter"
--- OUTSIDE RECORDS SUMMARY | ~2019-11-09 | XMS | Encounter Summary ---
Demographics + + + | Address | [address] | | | [place] [address] | + + + | Home Phone | | + + + | Preferred Language | Unknown | + + + | Marital Status | | + + + | Buddhist Affiliation | 1013 | + + + | Race | White | + + + | Ethnic Group | Not or | + + + Author + + + | Author | [facility] | | | and [place] | + + + | Organization | [facility] | | | [...] Team Providers + +------+ + | Care Bulk Plant Supervisor Name | Role | Phone | + +------+ + PCP | Unavailable | + +------+ + Encounter Details +--------+ + + + + | Date | Type | Department | Care Team | Description | +--------+ + + + + | 10/13/ | [facility] | [facility] | Conversion | Thyroid nodule | | 2011 | Encounter | [facility] | Transaction, | | | | | ULTRASOUND [address] | Provider Unknown | | | | | [address] | | | | | | [place], [place] | | | | | | [address] | Shanti Brunner MD | | | | | [phone] | [address] | | | | | | [place] [address] [place], [place] | | | | | | [address] | | | | | | | [...] | + +--------+ + + + | MEDICAL CYTOLOGY | Routin | 10/16/2011 | | Results for this | | | e | 5:54 PM | | procedure are in the | | | | PDT | | results section. | + +--------+ + + + | US GUIDED THYROID | Routin | 10/14/2011 | | Results for this | | FNA | e | 2:57 PM | | procedure are in the | | | | PDT | | results section. | + +--------+ + + + documented in this encounter Results Medical Cytology (10/16/2011 5:54 PM PDT) + + | Specimen | + + | | + + + + + | Narrative | Performed At | + + + | CASE: [id number] PATIENT: JOSEPHINE CALDERON Cytology Report | EXTERNAL LAB | | Clinical History: THYROID NODULE Gross Description: 10 ML CLEAR | | | COLORLESS FLUID WITH FRAGMENTS, 6 PREPARED SLIDES Lab Preparation: 1 | | | MONOLAYER, 6 PREPARED SLIDES Specimen: A. RIGHT THYROID NEEDLE | | | SAMPLING CYTOLOGIC INTERPRETATION: THYROID, RIGHT, NEEDLE | | | SAMPLING: ATYPICAL CELLS PRESENT SPECIMEN ADEQUACY: Satisfactory | | | for Evaluation DESCRIPTION: Six smears and one monolayer | | | preparation are evaluated. The preparations are satisfactory for | | | evaluation, containing sufficient groups of follicular epithelium and | | | abundant small lymphocytes in the background. Some lymphocytes have | | | nucleoli. Atypical cytologic features to suggest papillary thyroid | | | carcinoma are not present. Features worrisome for follicular | | | epithelium neoplasm such as hypercellularity, microfollicular | | | pattern, and nuclear pleomorphism are not seen. Nevertheless, the | | | presence of abundant small lymphocytes is atypical. Differential | | | consideration includes non-specific chronic inflammation, Ruth Ann's | | | thyroiditis,and possibly low-grade atypical lymphoproliferative | | | process. If the latter is a clinical concern, a biopsy to procure | | | sufficient tissue, with consideration for submitting a portion of | | | fresh tissue in RPMI for flow cytometry analysis, is recommended for | | | further evaluation. Clinical correlation is requested. RAPID | | | ASSESSMENT FINDINGS: Fine needle sampling of a target lesion was | | | performed with collection of material for rapid assessment and | | | cytopathology evaluation. A total of 1 evaluation episodes occurred. | | | A Rapid Assessment Evaluation was performed by the pathologist, | | | Opal, at the time of collection. Pass #1-Additional material | | | requested. Pass #2-Additional material requested. Pass #3- Appears | | | adequate Performing Laboratory: Technical preparation was | | | performed by [facility], [address] [place] [address] | | | [place] [address] (Gear Straightener: Milo Culp M.D.; CLIA#: | | | [id number]). Professional interpretation was performed by [facility] | | | [facility], [address], | | | [place] [address] (Gear Straightener: Aubrey Joseph M.D.; CLIA#: | | | [id number]). Jolynn BOB([facility]) | | | Electronically signed Oct 16, 2011 10:38:22AM Ann Soto MD, | | | PhD Electronically signed Oct 16, 2011 5:54:08PM | | + + + + +---------+ + + | Performing | Address | City/State/Zipcode | Phone Number | | Organization | | | | + +---------+ + + | EXTERNAL LAB | | | | + +---------+ + + US Guided Thyroid FNA (10/14/2011 2:57 PM PDT) + + | Specimen | + + | | + + + + + | Narrative | Performed At | + + + | JOSEPHINE CALDERON US GUIDED THYROID FINE NEEDLE ASPIRATION 10/14/2011 | | | 1:47 PM History: 36 years. Female. 12-mm solitary | | | hypoechoic nodule of the right thyroid lobe by prior ultrasound | | | examination of 10/08/11. Procedure: The right thyroid nodule was | | | localized by ultrasound guidance. After sterile preparation of the | | | skin and local infiltration of Xylocaine 1%, a 23-gauge needle was | | | passed into the right thyroid nodule with ultrasound guidance for | | | fluid aspiration. The procedure was repeated twice for a total of 3 | | | samples. Immediate pathological inspection revealed adequate cells for | | | diagnosis. No complications. The patient was warned to report any | | | swelling or infection. Conclusions: 1. Ultrasound guided right | | | thyroid nodule fine needle aspiration. | | + + + + + | Procedure Note | + + | Tino, Rad Conversion - 11/14/2018 2:16 AM PDT JOSEPHINE DEJESUS GUIDED THYROID FINE | | NEEDLE ASPIRATION10/14/2011 1:47 PM History: 36 years. Female. 12-mm solitary | | hypoechoic nodule of the right thyroid lobe by prior ultrasound examination of 10/08/11. | | Procedure: The right thyroid nodule was localized by ultrasound guidance. After sterile | | preparation of the skin and local infiltration of Xylocaine 1%, a 23-gauge needle was | | passed into the right thyroid nodule with ultrasound guidance for fluid aspiration. The | | procedure was repeated twice for a total of 3 samples. Immediate pathological inspection | | revealed adequate cells for diagnosis. No complications. The patient was warned to | | report any swelling or infection. Conclusions:1. Ultrasound guided right thyroid nodule | | fine needle aspiration. | | 3:54 PM | |Conclusions: | |1. Ultrasound guided right thyroid nodule fine needle aspiration. | | | | | + + documented in this encounter Visit Diagnoses + + | Diagnosis | + + | Thyroid nodule Nontoxic uninodular goiter | + + documented in this encounter"
--- OUTSIDE RECORDS SUMMARY | ~2019-11-09 | XMS | Encounter Summary ---
Demographics + + + | Address | [address] | | | [place] [address] | + + + | Home Phone | | + + + | Preferred Language | Unknown | + + + | Marital Status | | + + + | Protestant Affiliation | 1013 | + + + [...] Team Providers + +------+ + | Care Junior Architect Name | Role | Phone | + +------+ + | Lubna Marie PA-C | PCP | | + +------+ + Reason for Visit + + + | Reason | Comments | + + + | Gynecologic Exam | | + + + Encounter Details +--------+---------+ + + + | Date | Type | Department | Care Team | Description | +--------+---------+ + + + | 01/11/ | Office | [facility] | FrankMendozaa, | Encounter for | | 2019 | Visit | [facility] | [address] | gynecological | | | | [facility] | [address] | examination without | | | | [address] | [place] [address] | abnormal finding | | | | [address] [place], | [phone] | (Primary Dx) | | | | [place] [address] | | | | | | [phone] | | | +--------+---------+ + + + Social History + +-------+ [...] + + documented as of this encounter Last Filed Vital Signs + + + [...] | | + + + + + documented in this encounter Patient Instructions Patient Instructions Lubna Marie PA-C - 01/11/2019 9:00 AM PDTFormatting of this note m ight be different from the original. Prevention Guidelines,Women Ages 40 to 49 Screening tests and vaccines are an important part of managing your health. A screening dami t is done to find possible disorders or diseases in people who don't have any symptoms. The goal is to find a disease early so lifestyle changes can be made and you can be watched more closely to reduce the risk of disease, or to detect it early enough to treat it most effect ively. Screening tests are not considered diagnostic, but are used to determine if more test ing is needed.Health counseling is essential, too. Below are guidelines for these, for wom en ages 40 to 49. Talk with your healthcare provider to make sure you re up-to-date on wha t you need. Screening Who needs it How often Type 2 diabetes or prediabetes All women beginning at age 45 and women without symptoms at any age who are overweight or obese and have 1 or more additional risk factors for diabetes At least every 3 years1 Type 2 diabetes or prediabetes All women diagnosed with gestational diabetes Lifelong testi ng every 3 years Type 2 diabetes All women with prediabetes Every year Alcohol misuse All women in this age group At routine exams Blood pressure All women in this age group Yearly checkup if your blood pressure is normal Normal blood pressure is less than 120/80 mm Hg If your blood pressure reading is higher than normal, follow the advice of your healthcare provider Breast cancer All women at average risk in this age group Screening with a mammogram can st art at age 40.2 Talk with your healthcare provider to help you decide when to start screenin g. At age 45 start yearly mammograms.3 Cervical cancer All women in this age group, except women who have had a complete hysterect reyna Pap test every 3 yearsor Pap test plushuman papilloma virus (HPV)test every 5 year s Chlamydia Women at increased risk for infection At routine exams if you're at risk or have symptoms Depression All women in this age group At routine exams Gonorrhea Sexually active women at increased risk for infection At routine exams Hepatitis C Anyone at increased risk; 1 time for those born between 1945 and 1965 At routin e exams High cholesterol or triglycerides All women ages 45 and older who are at risk for coronary artery disease; younger women, talk with your healthcare provider At least every 5 years HIV All women At routine exams. Those with risk factors for HIV should be tested at least a nnually. Obesity All women in this age group At routine exams Syphilis Women at increased risk for infection talk with your healthcare provider At rout ine exams Tuberculosis Women at increased risk for infection talk with your healthcare provider Ask your healthcare provider Vision All women in this age group Complete exam at age 40 and eye exams every 2 to 4 years . If you have a chronic disease, ask your healthcare provider how often you should have your eyes examined.4 Vaccine Who needs it How often Chickenpox (varicella) All women in this age group who have no record of this infection or vaccine 2 doses; the second dose should be given at least 4 weeks after the first dose Hepatitis A Women at increased risk for infection talk with your healthcare provider 2 do ses given 6 months apart Hepatitis B Women at increased risk for infection talk with your healthcare provider 3 do ses over 6 months; second dose should be given 1 month after the first dose; the third dose should be given at least 2 months after the second dose and at least 4 months after the firs t dose Haemophilus influenzaeType B (HIB) Women at increased risk 1 to 3 doses Influenza (flu) All women in this age group Once a year Measles, mumps, rubella (MMR) All women in this age group who have no record of these infec tions or vaccines 1 or 2 doses Meningococcal Women at increased risk for infection talk with your healthcare provider 1 or more doses Pneumococcal conjugate vaccine (PCV13)and pneumococcal polysaccharidevaccine(PPSV23) Women at increased risk for infection talk with your healthcare provider 1 or 2 doses Tetanus/diphtheria/pertussis (Td/Tdap) booster All women in this age group A one-time dose of Tdap instead of a Td booster after age 18, then Td every 10 years Counseling Who needs it How often BRCA gene mutation testing for breast and ovarian cancer susceptibility Women with increase d risk for having gene mutation When your risk is known Breast cancer and chemoprevention Women at high risk for breast cancer When your risk is kn own Diet and exercise Women who are overweight or obese When diagnosed, and then at routine exa ms Domestic violence Women at the age in which they are able to have children At routine exams Sexually transmitted infection prevention Women at increased risk for infection talk with your healthcare provider At routine exams Use of tobacco and the health effects it can cause All women in this age group Every exam 1American Diabetes Association 2American College of Obstetricians and Gynecologists 3American Cancer Society 4[facility] Academy of Ophthalmology Date Last Reviewed: 01/22/201719991591-6268 [employer]. [address] [place] [address], [place] [address]. All righ ts reserved. This information is not intended as a substitute for professional medical care. Always follow your healthcare professional's instructions. documented in this encounter Progress Notes Shanti Mccray, Shoeshiner - 01/11/2019 9:00 AM PDT Patient ID: Josephine Saxena is a 43 y.o. No obstetric history on file. female who presents for an annual exam. BP 118/70 | Pulse 99 | Ht 1.803 m (5' 11") | Wt 110.7 kg (244 lb) | SpO2 100% | BMI 34 .03 kg/m Review of Systems Constitutional: Negative for activity change, appetite change, chills, diaphoresis, fever a nd unexpected weight change. Respiratory: Negative for cough and shortness of breath. Cardiovascular: Negative for chest pain and leg swelling. Gastrointestinal: Positive for abdominal pain. Negative for blood in stool. Genitourinary: Negative for dyspareunia, dysuria, hematuria, menstrual problem, pelvic pain , vaginal bleeding, vaginal discharge and vaginal pain. Neurological: Positive for headaches. Negative for syncope, speech difficulty, weakness and numbness. Specialty Comments on [employer]: No specialty comments available. Patient Care Team: Lubna Marie PA-C as PCP - General Pap smear history: Patient has had hysterectomy. The patient denies a history of abnormal p ap smears. Mammogram history: last mammogram: approximate date 01/02/18 and was normal. The patient re ports that she is doing monthly self-breast exams. Social History Substance and Sexual Activity Sexual Activity Yes Partners: Male control/protection: Surgical Menstrual History: OB History 4 Para 1 Term 1 0 AB 3 Living SAB 3 TAB 0 Ectopic 0 Molar 0 Multiple Live Births No LMP recorded. Patient has had a hysterectomy. Recommendations from Health Maintenance / Immunizations: Preventative Services TOPIC LAST DONE NEXT DUE Vaccine: Influenza 11/22/2018 Breast Cancer Screening 01/02/2018 01/02/2019 Vaccine: Dtap/Tdap/Td 1993 PHQ2 Screening: Negative (01/11/19 0910) The patient has signed up for [employer]. Lubna Briscoe PA-C - 01/11/2019 9:00 AM PDTPA NOTE: S: Pt in today for an annual exam. States that she is doing well with no major issues. Wor k is still stressful but she is dealing with it. Has PCP in [place] who does labs. States that she still sees urologist for recurrent UTIs and has GI for recent bouts of diverticulit is. Denies vaginal d/c, lesions, odor, itching, dyspareunia, pelvic pain, UTI sxs, GI sxs, fever, chills. Complete ROS was obtained and all other systems are reviewed and negative. O: Well dressed, obese, afebrile female in NAD with nl gait. Head is normocephalic without obvious abnormalities. Eyes: nl conjunctiva and lids ENT: nl without lesions or deformities with hearing grossly intact Neck: supple, symmetrical, trachea mid position; mildy enlarged thyroid Resp: nl resp effort, no retractions or use of accessory muscles; clear to auscultation; no rales, rhonchi, or wheezes Chest: no wall deformities, masses, or tenderness; no axillary adenopathy; breast have no s kin dimpling or retraction; no nipple d/c; no masses or tenderness bilat; dense breasts bila t; scars from breast reduction noted CV: regular rate, rhythm, no murmur, rub, or gallop GI: soft, non tender; nl liver; no hernias : nl female genitalia without lesions or masses; nl urethra; well supported; bladder nec k well supported and without tenderness; no cystocele; nl vagina with no d/c; cervix and stevie pam; surgically absent; no masses; adnexa; nl bimanual without masses, fullness, or tenderne ss; exam difficult due to body habitus Anus: no hemorrhoids noted Lymph: no cervical, axillary, inguinal, or other adenopathy Skin: intact with no rashes, lesions, or ulcerations. Neuro: nl speech and language Psych: intact judgment, alert and oriented X 3, cooperative; nl attention span and concentr ation; no appearance of anxiety, depression; nl mood/affect A: preventive flight surveyor exam; P: FU 1 year; reviewed diet and exercise, multivitamins, and general well maintenance; rev iewed PAP/mammogram guidelines; reviewed perimenopausal changes documented in this en counter Plan of Treatment Not on filedocumented as of this encounter Visit Diagnoses + + | Diagnosis | + + | Encounter for gynecological examination without abnormal finding - Primary Routine | | gynecological examination | + + documented in this encounter
--- OUTSIDE RECORDS SUMMARY | ~2019-11-09 | XMS | Encounter Summary ---
Demographics + + + | Address | [address] | | | [place] [address] | + + + | Home Phone | | + + + | Preferred Language | Unknown | + + + | Marital Status | | + + + | Christian Affiliation | 1013 | + + + | Race | White | + + + | Ethnic Group | Not or | + + + Author + + + | Author | [facility] | | | and [place] | + + + | Organization | [facility] | | | [...] Team Providers + +------+ + | Care Traverse Rod Assembler Name | Role | Phone | + +------+ + PCP | Unavailable | + +------+ + Encounter Details +--------+ + + + + | Date | Type | Department | Care Team | Description | +--------+ + + + + | 11/21/ | [facility] | [facility] | Roel Bello | Excessive | | 2006 - | Encounter | [facility] [address] | [place] [phone] | Menstruation | | | | [address] | (Fax) | | | 11/22/ | | [place] | | | | 2005 | | [address] | | | | | | [phone] | | | +--------+ + + + [...] + | Diagnosis | + + | Excessive menstruation Excessive or frequent menstruation | + + documented in this encounter"
--- OUTSIDE RECORDS SUMMARY | ~2019-11-09 | XMS | Encounter Summary ---
Demographics + + + | Address | [address] | | | [place] [address] | + + + | Home Phone | | + + + | Preferred Language | Unknown | + + + | Marital Status | | + + + | Methodist Affiliation | 1013 | + + + [...] Team Providers + +------+ + | Care Pulling Unit Operator Name | Role | Phone | + +------+ + | Lubna Marie PA-C | PCP | | + +------+ + Encounter Details +--------+ + + + + | Date | Type | Department | Care Team | Description | +--------+ + + + + | 01/23/ | Orders Only | [facility] | Conversion | | | 2009 | | CONVERSION [address]P [address] | Transaction, | | | | | [address] | Provider Unknown | | | | | [place], [place] | [phone] | | | | | [address] | | | | | | [phone] | | | +--------+ + + + [...] | + +--------+ + + + | PATHOLOGY MOP HANDLE ASSEMBLER | Routin | 01/23/2009 | | Results for this | | REQUEST | e | 10:16 AM | | procedure are in the | | | | PST | | results section. | + +--------+ + + + documented in this encounter Results Pathology Canteen Manager Request (01/23/2009 10:16 AM PST) + +--------+ + + + | Component | Value | Ref Range | Performed | Pathologist | | | | | At | Signature | + +--------+ + + + | Pap Smear, | Normal | | EXTERNAL | | | External | | | LAB | | + +--------+ + + + + + | Specimen | + + | | + + + +---------+ + + | Performing | Address | City/State/Zipcode | Phone Number | | Organization | | | | + +---------+ + + | EXTERNAL LAB | | | | + +---------+ + + documented in this encounter Visit Diagnoses Not on filedocumented in this encounter"
--- OUTSIDE RECORDS SUMMARY | ~2019-11-09 | XMS | Encounter Summary ---
Demographics + + + | Address | [address] | | | [place] [address] | + + + | Home Phone | | + + + | Preferred Language | Unknown | + + + | Marital Status | | + + + | Sabianism Affiliation | 1013 | + + + | Race | White | + + + | Ethnic Group | Not or | + + + Author + + + | Author | [facility] | | | and [place] | + + + | Organization | [facility] | | | [...] Team Providers + +------+ + | Care Engraver Rubber Name | Role | Phone | + +------+ + PCP | Unavailable | + +------+ + Encounter Details +--------+ + + + + | Date | Type | Department | Care Team | Description | +--------+ + + + + | 02/01/ | Hospital | [facility] | Nicholas Bello | Other Screening | | 2008 | Encounter | CONVERSION DEP [address] | [place] [phone] | Mammogram | | | | [address] | (Fax) | | | | | [place] | | | | | | [address] | | | | | | [phone] | | | +--------+ + + + [...] + | THERESE DIGITAL | Routin | 02/01/2009 | | Results for this | | SCREENING BILATERAL | e | 10:56 AM | | procedure are in the | | | | PST | | results section. | + +--------+ + + + documented in this encounter Results THERESE Digital Screening Bilateral (02/01/2009 10:56 AM PST) + + | Specimen | + + | | + + + + + | Narrative | Performed At | + + + | [id number] | | | Page 1 RADIOLOGY | | | / | | | O/P [facility] | | | NAME: [place] [address] | | | | | | | | | DATE OF : 1975 ORDER NUMBER: [id number] EXAM | | | DATE/TIME: 02/01/2009 09:45 A ORDERING PHYSICIAN: KRIS | | | NICHOLAS Onofre ORDER DETAIL: 580 / / KRISTIN EXAM DESCRIPTION: THERESE | | | DIGITAL BILAT SCREENING/CAD FDA# [id number] | | | | | | BILATERAL SCREENING MAMMOGRAPHY WITH CAD 02/01/2009 HISTORY | | | Screening mammogram. COMPARISON Comparison was made to prior | | | studies including the most recent comparison dated 12/03/2006, and | | | earlier comparisons as far back as 09/09/2002. TECHNIQUE Digital | | | mammographic images were obtained in both craniocaudal and | | | mediolateral oblique projections bilaterally. All images were | | | interpreted with the benefit of a computer-aided detection system. | | | FINDINGS The breasts contain scattered fibroglandular tissue | | | bilaterally. No suspicious masses, calcifications, or secondary signs | | | of malignancy are identified. IMPRESSION Negative screening | | | mammography. BIRADS - 1, negative. A. A negative x-ray | | | report should not delay biopsy if a dominant or clinically | | | suspicious mass is present. 10% to 15% of cancers are not | | | identified by x-ray. B. Adenosis and dense breasts may obscure an | | | underlying lesion. C. False positive reports average 6% to 10%. D. | | | Breast ultrasound or breast MRI may be useful for unresolved | | | findings. Read by MARTIN ROBBINS MD 02/01/2009 09:00 P | | | Electronically Signed by MARTIN ROBBINS MD 02/01/2009 08:43 P | | | P P TSG/td// cc: | | | DO MARTIN CORDERO MD | | + + + + + | Procedure Note | + + | Cain Jiménez - 11/15/2018 10:57 PM PDT | | [id number] Page 1 | | RADIOLOGY / | | O/P | | [facility] NAME: JOSEPHINE CALDERON | | [place] [address] | | | | DATE OF : 1975 | | | | ORDER NUMBER: [id number] | | EXAM DATE/TIME: 02/01/2009 09:45 A | | ORDERING PHYSICIAN: NICHOLAS BELLO | | ORDER DETAIL: 580 / / KRISTIN | | EXAM DESCRIPTION: THERESE DIGITAL BILAT SCREENING/CAD [facility]# [id number] | | | | BILATERAL SCREENING MAMMOGRAPHY WITH CAD 02/01/2009 | | | | HISTORY | | Screening mammogram. | | | | COMPARISON | | Comparison was made to prior studies including the most recent | | comparison dated 12/03/2006, and earlier comparisons as far back as | | 09/09/2002. | | | | TECHNIQUE | | Digital mammographic images were obtained in both craniocaudal and | | mediolateral oblique projections bilaterally. All images were | | interpreted with the benefit of a computer-aided detection system. | | | | FINDINGS | | The breasts contain scattered fibroglandular tissue bilaterally. | | No suspicious masses, calcifications, or secondary signs of malignancy | | are identified. | | | | IMPRESSION | | Negative screening mammography. | | | | BIRADS - 1, negative. | | | | | | A. A negative x-ray report should not delay biopsy if a dominant or | | clinically suspicious mass is present. 10% to 15% of cancers are not | | identified by x-ray. | | B. Adenosis and dense breasts may obscure an underlying lesion. | | C. False positive reports average 6% to 10%. | | D. Breast ultrasound or breast MRI may be useful for unresolved | | findings. | | | | | | Read by | | MARTIN ROBBINS MD 02/01/2009 09:00 P | | Electronically Signed by | | MARTIN ROBBINS MD 02/01/2009 08:43 P | | | | P | | P | | TSG/td// | | cc: NICHOLAS BELLO DO | | MARTIN ROBBINS MD | + + documented in this encounter Visit Diagnoses + + | Diagnosis | + + | Other screening mammogram | + + documented in this encounter"
--- OUTSIDE RECORDS SUMMARY | ~2019-11-09 | XMS | Encounter Summary ---
Demographics + + + | Address | [address] | | | [place] [address] | + + + | Home Phone | | + + + | Preferred Language | Unknown | + + + | Marital Status | | + + + | Quaker Affiliation | 1013 | + + + | Race | White | + + + | Ethnic Group | Not or | + + + Author + + + | Author | [facility] | | | and [place] | + + + | Organization | [facility] | | | [...] Team Providers + +------+ + | Care Delivery Of Shopping News Name | Role | Phone | + +------+ + PCP | Unavailable | + +------+ + Encounter Details +--------+ + + + + | Date | Type | Department | Care Team | Description | +--------+ + + + + | 02/08/ | Hospital | [facility] | | | | 2004 | Encounter | [address] | | | | | | [address] | | | | | | [place] | | | | | | [address] | | | | | | [phone] | | | +--------+ + + + [...]
--- OUTSIDE RECORDS SUMMARY | ~2019-11-09 | XMS | Encounter Summary ---
Demographics + + + | Address | [address] | | | [place] [address] | + + + | Home Phone | | + + + | Preferred Language | Unknown | + + + | Marital Status | | + + + | Orthodoxy Affiliation | 1013 | + + + | Race | White | + + + | Ethnic Group | Not or | + + + Author + + + | Author | [facility] | | | and [place] | + + + | Organization | [facility] | | | [...] Team Providers + +------+ + | Care Platform Beater Name | Role | Phone | + +------+ + PCP | Unavailable | + +------+ + Encounter Details +--------+ + + + + | Date | Type | Department | Care Team | Description | +--------+ + + + + | 07/19/ | Orders Only | [facility] | [place], | | | 2018 | | [address] | [address] | | | | | [place], [place] | [address] | | | | | [address] | [place] [address] | | | | | [phone] | [phone] | | | | | | | [...] | + +--------+ + + + | URINALYSIS, REFLEX | Routin | 07/19/2017 | | Results for this | | MICROSCOPIC AND/OR | e | 9:04 AM | | procedure are in the | | CULTURE | | PDT | | results section. | + +--------+ + + + | EXTERNAL LAB: CBC | Routin | 07/19/2017 | | Results for this | | | e | 8:36 AM | | procedure are in the | | | | PDT | | results section. | + +--------+ + + + | LIPID PANEL | Routin | 07/19/2017 | | Results for this | | | e | 8:36 AM | | procedure are in the | | | | PDT | | results section. | + +--------+ + + + | VITAMIN D, | Routin | 07/19/2017 | | Results for this | | DEFICIENCY SCREEN | e | 8:36 AM | | procedure are in the | | (25-HYDROXY) | | PDT | | results section. | + +--------+ + + + | T3, FREE | Routin | 07/19/2017 | | Results for this | | | e | 8:36 AM | | procedure are in the | | | | PDT | | results section. | + +--------+ + + + | TSH | Routin | 07/19/2017 | | Results for this | | | e | 8:36 AM | | procedure are in the | | | | PDT | | results section. | + +--------+ + + + | T4, FREE | Routin | 07/19/2017 | | Results for this | | | e | 8:36 AM | | procedure are in the | | | | PDT | | results section. | + +--------+ + + + | HEMOGLOBIN A1C | Routin | 07/19/2017 | | Results for this | | | e | 8:36 AM | | procedure are in the | | | | PDT | | results section. | + +--------+ + + + | COMPREHENSIVE | Routin | 07/19/2017 | | Results for this | | METABOLIC PANEL | e | 8:36 AM | | procedure are in the | | | | PDT | | results section. | + +--------+ + + + documented in this encounter Results Urinalysis, Reflex Microscopic and/or Culture (07/19/2017 9:04 AM PDT) + + + + + + | Component | Value | Ref Range | Performed | Pathologist | | | | | At | Signature | + + + + + + | Color | STRAW | | EXTERNAL | | | | | | LAB | | + + + + + + | Clarity, | CLEAR | | EXTERNAL | | | Urine | | | LAB | | + + + + + + | Specific | 1.008 | 1.002 - 1.030 | EXTERNAL | | | [place], | | | LAB | | | Urine | | | | | + + + + + + | Leukocyte | NEGATIVE | | EXTERNAL | | | Esterase, | | | LAB | | | Urine | | | | | + + + + + + | Nitrite, | NEGATIVE | | EXTERNAL | | | Urine | | | LAB | | + + + + + + | Urobilinoge | NORMAL | mg/dL | EXTERNAL | | | n, Urine | | | LAB | | + + + + + + | Protein, | NEGATIVE | mg/dL | EXTERNAL | | | Urine | | | LAB | | + + + + + + | pH, Urine | 6.0 | 5.0 - 8.0 | EXTERNAL | | | | | | LAB | | + + + + + + | Blood, | NEGATIVE | | EXTERNAL | | | Urine | | | LAB | | + + + + + + | Ketones | NEGATIVE | mg/dL | EXTERNAL | | | | | | LAB | | + + + + + + | Bilirubin, | NEGATIVE | | EXTERNAL | | | Urine | | | LAB | | + + + + + + | Glucose, | NEGATIVE | mg/dL | EXTERNAL | | | Urine | | | LAB | | + + + + + + + + | Specimen | + + | | + + + +---------+ + + | Performing | Address | City/State/Zipcode | Phone Number | | Organization | | | | + +---------+ + + | EXTERNAL LAB | | | | + +---------+ + + Vitamin D, Deficiency Screen (25-Hydroxy) (07/19/2017 8:36 AM PDT) + + + + + + | Component | Value | Ref Range | Performed | Pathologist | | | | | At | Signature | + + + + + + | Vit D, | <12 (L)Comment: <20 | 30 - 150 ng/mL | EXTERNAL | | | 25-Hydroxy | ng/mL Suggests | | LAB | | | [...] + +---------+ + + External Lab: CBC (07/19/2017 8:36 AM PDT) + + + + + + | Component | Value | Ref Range | Performed | Pathologist | | | | | At | Signature | + + + + + + | WBC | 6.62 | 3.80 - 11.00 | EXTERNAL | | | | | 10*3/uL | LAB | | + + + + + + | Non- | 4.52 | 3.70 - 5.10 | EXTERNAL | | | Red Blood | | 10*6/uL | LAB | | | Cells | | | | | | Counted | | | | | + + + + + + | Hemoglobin | 13.8 | 11.3 - 15.5 | EXTERNAL | | | | | g/dL | LAB | | + + + + + + | Hematocrit, | 40.6 | 34.0 - 46.0 % | EXTERNAL | | | POC | | | LAB | | + + + + + + | MCV | 89.8 | 80.0 - 100.0 fL | EXTERNAL | | | | | | LAB | | + + + + + + | MCH | 30.5 | 27.0 - 34.0 pg | EXTERNAL | | | | | | LAB | | + + + + + + | MCHC | 33.9 | 32.0 - 35.5 | EXTERNAL | | | | | g/dL | LAB | | + + + + + + | RDW-CV | 41.1 | 37 - 53 fL | EXTERNAL | | | | | | LAB | | + + + + + + | Platelet | 336 | 150 - 400 | EXTERNAL | | | Count | | 10*3/uL | LAB | | | Plasma | | | | | + + + + + + | MPV | 7.8 | fL | EXTERNAL | | | | | | LAB | | + + + + + + | Differentia | AUTOMATED | | EXTERNAL | | | l Type | | | LAB | | + + + + + + | % Segmented | 56.73 | % | EXTERNAL | | | | | | LAB | | | Neutrophils | | | | | + + + + + + | % | 33.36 | % | EXTERNAL | | | Lymphocytes | | | LAB | | + + + + + + | % Monocytes | 6.37 | % | EXTERNAL | | | | | | LAB | | + + + + + + | % | 2.88 | % | EXTERNAL | | | Eosinophils | | | LAB | | + + + + + + | % Basophils | 0.66 | % | EXTERNAL | | | | | | LAB | | + + + + + + | Absolute | 3.75 | 1.90 - 7.40 | EXTERNAL | | | Segmented | | 10*3/uL | LAB | | | Neutrophils | | | | | + + + + + + | Absolute | 2.21 | 1.00 - 3.90 | EXTERNAL | | | Lymphocytes | | 10*3/uL | LAB | | + + + + + + | Absolute | 0.42 | 0.00 - 0.80 | EXTERNAL | | | Monocytes | | 10*3/uL | LAB | | + + + + + + | Absolute | 0.19 | 0.00 - 0.50 | EXTERNAL | | | Eosinophils | | 10*3/uL | LAB | | + + + + + + | Absolute | 0.04 | 0.00 - 0.10 | EXTERNAL | | | Basophils | | 10*3/uL | LAB | | [...] | + +---------+ + + T3, Free (07/19/2017 8:36 AM PDT) + +-------+ + + + | Component | Value | Ref Range | Performed | Pathologist | | | | | At | Signature | + +-------+ + + + | T3, Free | 3.1 | 2.18 - 3.98 | EXTERNAL | [...] | | + +---------+ + + TSH (07/19/2017 8:36 AM PDT) + +-------+ + + + | Component | Value | Ref Range | Performed | Pathologist | | | | | At | Signature | + +-------+ + + + | TSH | 2.720 | 0.450 - 5.100 | EXTERNAL | | | | | [...] | + +---------+ + + T4, Free (07/19/2017 8:36 AM PDT) + +-------+ + + + [...] | | | + +---------+ + + Hemoglobin A1C (07/19/2017 8:36 AM PDT) + + + + + + | Component | Value | Ref Range | Performed | Pathologist | | | | | At | Signature | + + + + + + | Hemoglobin | 5.4Comment: The [place] | 4.0 - 6.0 % | EXTERNAL | | | A1c | Diabetes Association | | LAB | | | | considers a hemoglobin | | | | | | A1c result of <7.0% to | | | | | | be the goal of diabetic | | | | | | therapy. When results | | | | | | are consistently >8.0%, | | | | | | the ADA suggests | | | | | | reevaluation of the | | | | | | treatment regimen. The | | | | | | testing method used is | | | | | | certified traceable to | | | | | | the Diabetes Control and | | | | | | Complications Trial | | | | | | reference method. | | | | + + + + + + | Glycohemogl | 108Comment: The ADA | mg/dL | EXTERNAL | | | obin | considers an eAG result | | LAB | | | (GHb),Total | of LT 154 mg/dL to be | | | | | | the goal of diabetic | | | | | | therapy. Estimated | | | | | | Average Glucose | | | | | | calculated from | | | | | | hemoglobin A1c by use of | | | | | | the ADA recommended | | | | | | formula. | | | | + + + + + + + + | Specimen | + + | Blood specimen | | (specimen) | + + + +---------+ + + | Performing | Address | City/State/Zipcode | Phone Number | | Organization | | | | + +---------+ + + | EXTERNAL LAB | | | | + +---------+ + + Lipid Panel (07/19/2017 8:36 AM PDT) + +---------+ + + + | Component | Value | Ref Range | Performed | Pathologist | | | | | At | Signature | + +---------+ + + + | Cholesterol | 203 (H) | mg/dL | EXTERNAL | | | | | | LAB | | + +---------+ + + + | Triglycerid | 154 (H) | mg/dL | EXTERNAL | | | es | | | LAB | | + +---------+ + + + | HDL | 73 | mg/dL | EXTERNAL | | | | | | LAB | | + +---------+ + + + | LDL, | 99 | mg/dL | EXTERNAL | | | Calculated | | | LAB | | + +---------+ + + + + + | Specimen | + + | Blood specimen | | (specimen) | + + + +---------+ + + | Performing | Address | City/State/Zipcode | Phone Number | | Organization | | | | + +---------+ + + | EXTERNAL LAB | | | | + +---------+ + + Comprehensive Metabolic Panel (07/19/2017 8:36 AM PDT) + + + + + + | Component | Value | Ref Range | Performed | Pathologist | | | | | At | Signature | + + + + + + | Na | 141 | 135 - 145 | EXTERNAL | | | | | mmol/L | LAB | | + + + + + + | K | 4.7 | 3.5 - 4.9 | EXTERNAL | | | | | mmol/L | LAB | | + + + + + + | Cl | 106 | 99 - 109 mmol/L | EXTERNAL | | | | | | LAB | | + + + + + + | CO2 | 25 | 23 - 32 mmol/L | EXTERNAL | | | | | | LAB | | + + + + + + | Anion Gap | 15 | 5 - 20 mmol/L | EXTERNAL | | | | | | LAB | | + + + + + + | Glucose, | 87 | 65 - 99 mg/dL | EXTERNAL | | | Fasting | | | LAB | | + + + + + + | BUN | 12 | 8 - 25 mg/dL | EXTERNAL | | | | | | LAB | | + + + + + + | Creatinine | 0.8 | 0.50 - 1.00 | EXTERNAL | | | | | mg/dL | LAB | | + + + + + + | BUN/Creatin | 15 | | EXTERNAL | | | ine Ratio | | | LAB | | + + + + + + | Calcium | 9.3 | 8.5 - 10.5 | EXTERNAL | | | | | mg/dL | LAB | | + + + + + + | Protein, | 7.2 | 6.3 - 8.2 g/dL | EXTERNAL | | | Total | | | LAB | | + + + + + + | Albumin | 3.5 (L) | 3.6 - 5.0 g/dL | EXTERNAL | | | | | | LAB | | + + + + + + | Globulin | 3.7 | 1.3 - 4.9 g/dL | EXTERNAL | | | | | | LAB | | + + + + + + | A/G Ratio | 0.9 (L) | 1.0 - 2.4 | EXTERNAL | | | | | | LAB | | + + + + + + | Bilirubin | 0.3 | 0.1 - 1.5 mg/dL | EXTERNAL | | | Total | | | LAB | | + + + + + + | ALP, | 96 | 35 - 115 U/L | EXTERNAL | | | External | | | LAB | | + + + + + + | AST | 14 | 10 - 45 U/L | EXTERNAL | | | | | | LAB | | + + + + + + | ALT | 16 | 10 - 65 U/L | EXTERNAL | | | | | | LAB | | + + + + + + | Estimated | >60Comment: GFR <60: | mL/min/1.73_m2 | EXTERNAL | | | GFR | CHRONIC KIDNEY DISEASE, | | LAB | | | | IF FOUND OVER A 3 MONTH | | | | | | PERIOD. GFR <15: KIDNEY | | | | | | FAILURE. FOR | | | | | | AMERICANS, MULTIPLY THE | | | | | | CALCULATED GFR BY 1.210. | | | | + + + [...]
--- OUTSIDE RECORDS SUMMARY | ~2019-11-09 | XMS | Encounter Summary ---
Demographics + + + | Address | [address] | | | [place] [address] | + + + | Home Phone [...] Team Providers + +------+ + | Care Motorboat Mechanic Name | Role | Phone | + +------+ + PCP | Unavailable | + +------+ + Encounter Details +--------+ + + + + | Date | Type | Department | Care Team | Description | +--------+ + + + + | 10/23/ | [facility] | [facility] | Roel Bello | | | 2001 - | Encounter | [facility] | [place] [phone] | | | | | AND DELIVERY [address] | (Fax) | | | 10/25/ | | [address] | | | | 2000 | | [facility] [place] | | | | | | [address] | | | | | | [phone] | | | +--------+ + + + [...]
--- OUTSIDE RECORDS SUMMARY | ~2019-11-09 | XMS | Encounter Summary ---
Demographics + + + | Address | [address] | | | [place] [address] | + + + | Home Phone | | + + + | Preferred Language | Unknown | + + + | Marital Status | | + + + | Rastafarian Affiliation | 1013 | + + + | Race | White | + + + | Ethnic Group | Not or | + + + Author + + + | Author | [facility] | | | and [place] | + + + | Organization | [facility] | | [...] Team Providers + +------+ + | Care Field Cane Scale Clerk Name | Role | Phone | + +------+ + PCP | Unavailable | + +------+ + Encounter Details +--------+ + + + + | Date | Type | Department | Care Team | Description | +--------+ + + + + | 10/ | Hospital | [facility] | Conversion | Visit for screening | | 2018 | Encounter | IM[facility]ING SERVICES | Transaction, | mammogram | | | | [address] | Provider Unknown | | | | | [address] [place] | [phone] | | | | | [address] | | | | | | [phone] | Lubna Marie PA-C | | | | | | [address] | | | | | | [address] [place], | | | | | | [place] [address] | | | | | | [phone] | | | | | | | [...] + | THERESE TOMOSYN | Routin | 01/02/2018 | | Results for this | | SCREENING BILATERAL | e | 9:55 AM | | procedure are in the | | | | PDT | | results section. | + +--------+ + + + documented in this encounter Results THERESE Tomosynthesis Screening Bilateral (01/02/2018 9:55 AM PDT) + + | Specimen | + + | | + + + + + | Impressions | Performed At | + + + | Benign findings. Normal interval followup is recommended in 12 | | | months. ASSESSMENT: BI-RADS Category 2 - Benign. Per National | | | MQSA guidelines, a letter of notification will be sent to the patient. | | | | | | PM | | + + + + + + | Narrative | Performed At | + + + | JOSEPHINE SAXENA MAMMO SCREEN COMBO HD BILATERAL 01/02/2018 9:55 | | | AM HISTORY: 42 years. Female. Family history of breast | | | cancer in her maternal grandmother in her 60s, paternal grandmother at | | | age 60, and maternal aunt at age 89. History of breast reduction | | | surgery in 2002. No current breast symptoms are reported. | | | TECHNIQUE: Digital mammographic craniocaudad and medial lateral | | | oblique (2D) views of each breast were performed, with additional | | | digital tomosynthesis (3D) imaging of each breast in 2 projections. | | | Computerized aided detection software was utilized. COMPARISON: | | | Mammograms dating from 02/01/2009 until 01/01/2017. FINDINGS: | | | Breast Tissue: The breasts are almost entirely fatty. Stable | | | benign appearing regions of postoperative architectural distortion are | | | noted. No significant masses, calcifications, or areas of | | | architectural distortion are seen. | | + + + + + | Procedure Note | + + | Tino, Rad Conversion - 11/04/2018 3:07 AM PDT JOSEPHINE PINEDO SCREEN COMBO HD | | VUSOGWAFO96/12/2018 9:55 AM HISTORY: 42 years. Female. Family history of breast | | cancer in her maternal grandmother in her 60s, paternal grandmother at age 60, and | | maternal aunt at age 89. History of breast reduction surgery in 2002. No current breast | | symptoms are reported. TECHNIQUE: Digital mammographic craniocaudad and medial lateral | | oblique (2D) views of each breast were performed, with additional digital tomosynthesis | | (3D) imaging of each breast in 2 projections. Computerized aided detection software was | | utilized. COMPARISON: Mammograms dating from 02/01/2009 until 01/01/2017. FINDINGS: | | Breast Tissue: The breasts are almost entirely fatty. Stable benign appearing regions | | of postoperative architectural distortion are noted. No significant masses, | | calcifications, or areas of architectural distortion are seen. IMPRESSION: Benign | | findings. Normal interval followup is recommended in 12 months. ASSESSMENT: BI-RADS | | Category 2 - Benign. Per National MQSA guidelines, a letter of notification will be sent | | to the patient. | |Stable benign appearing regions of postoperative architectural distortion are noted. | | | |No significant masses, calcifications, or areas of architectural distortion are seen. | | | |IMPRESSION: | | | |Benign findings. Normal interval followup is recommended in 12 months. | | | |ASSESSMENT: BI-RADS Category 2 - Benign. | | | |Per National MQSA guidelines, a letter of notification will be sent to the patient. | | | | | + + documented in this encounter Visit Diagnoses + + | Diagnosis | + + | Visit for screening mammogram Other screening mammogram | + + documented in this encounter"
--- OUTSIDE RECORDS SUMMARY | ~2019-11-09 | XMS | Encounter Summary ---
Demographics + + + | Address | [address] | | | [place] [address] | + + + | Home Phone | | + + + | Preferred Language | Unknown | + + + | Marital Status | | + + + | Taoism Affiliation | 1013 | + + + | Race | White | + + + | Ethnic Group | Not or | + + + Author + + + | Author | [facility] | | | and [place] | + + + | Organization | [facility] | [...] Team Providers + +------+ + | Care Knot Bumper Name | Role | Phone | + +------+ + PCP | Unavailable | + +------+ + Encounter Details +--------+ + + + + | Date | Type | Department | Care Team | Description | +--------+ + + + + | 10/12/ | [facility] | [facility] | Conversion | Thyroid nodule | | 2014 | Encounter | [facility] | Transaction, | | | | | ULTRASOUND [address] | Provider Unknown | | | | | [address] | [phone] | | | | | [place], [place] | | | | | | [address] | | | | | | [phone] | | | +--------+ + + + [...] + | US THYROID | Routin | 10/12/2014 | | Results for this | | | e | 8:54 PM | | procedure are in the | | | | PDT | | results section. | + +--------+ + + + documented in this encounter Results US Thyroid (10/12/2014 8:54 PM PDT) + + | Specimen | + + | | + + + + + | Impressions | Performed At | + + + | 1. The nodule in the right thyroid lobe is stable, subject of | | | prior biopsy. Would correlate with that result 2. Heterogeneous | | | thyroid which could be postinflammatory or evidence of autoimmune | | | disease 3. Newly conspicuous but small hypoechoic nodule in the | | | posterior aspect of the mid left lobe of 7 mm. Surveillance in 6-12 | | | months is recommended. | | + + + + + + | Narrative | Performed At | + + + | History: 39 -year-old female with surveillance of known thyroid | | | nodule Technique: Ultrasound of the thyroid. 14 October 2011 prior | | | similar study available for comparison. Findings: Right | | | thyroid lobe measures 4.9 X 1. X 1.4 cm. Left thyroid lobe measures | | | 4.7 X 1.6 X 1.2 cm. Thyroid is of heterogeneous and multinodular | | | echotexture. In the right thyroid lobe, lower pole-a 1.2 x 0.8 x | | | 0.7 cm solid nodule is discernible, image 14. To technique, seems | | | stable. This is the subject of prior biopsy Other findings are | | | subcentimeter, but a 7 mm hypoechoic nodule in the posterior aspect of | | | the left thyroid lobe is not conspicuous, not previously imaged on | | | image 35 today. | | + + + + + | Procedure Note | + + | Tino, Rad Conversion - 11/06/2018 12:21 AM PDT History: 39 -year-old female with | | surveillance of known thyroid nodule Technique: Ultrasound of the thyroid. 14 October 2011 | | prior similar study available for comparison. Findings: Right thyroid lobe measures 4.9 | | X 1. X 1.4 cm.Left thyroid lobe measures 4.7 X 1.6 X 1.2 cm. Thyroid is of heterogeneous | | and multinodular echotexture. In the right thyroid lobe, lower pole-a 1.2 x 0.8 x 0.7 | | cm solid nodule is discernible, image 14. To technique, seems stable. This is the | | subject of prior biopsy Other findings are subcentimeter, but a 7 mm hypoechoic nodule | | in the posterior aspect of the left thyroid lobe is not conspicuous, not previously | | imaged on image 35 today. IMPRESSION: 1. The nodule in the right thyroid lobe is | | stable, subject of prior biopsy. Would correlate with that result 2. Heterogeneous | | thyroid which could be postinflammatory or evidence of autoimmune disease 3. Newly | | conspicuous but small hypoechoic nodule in the posterior aspect of the mid left lobe of | | 7 mm. Surveillance in 6-12 months is recommended. | | | |IMPRESSION: | | | |1. The nodule in the right thyroid lobe is stable, subject of prior biopsy. Would correlate with that result | | | |2. Heterogeneous thyroid which could be postinflammatory or evidence of autoimmune disease | | | |3. Newly conspicuous but small hypoechoic nodule in the posterior aspect of the mid left lo be of 7 mm. Surveillance in 6-12 months is recommended. | | | | | + + documented in this encounter Visit Diagnoses + + | Diagnosis | + + | Thyroid nodule Nontoxic uninodular goiter | + + documented in this encounter"
--- OUTSIDE RECORDS SUMMARY | ~2019-11-09 | XMS | Encounter Summary ---
Demographics + + + | Address | [address] | | | [place] [address] | + + + | Home Phone | | + + + | Preferred Language | Unknown | + + + | Marital Status | | + + + | Baptism Affiliation | 1013 | + + + | Race | White | + + + | Ethnic Group | Not or | + + + Author + + + | Author | [facility] | | | and [place] | + + + | Organization | [facility] | | [...] Team Providers + +------+ + | Care Sales Process Manager Name | Role | Phone | + +------+ + PCP | Unavailable | + +------+ + Encounter Details +--------+ + + + + | Date | Type | Department | Care Team | Description | +--------+ + + + + | 10/14/ | Hospital | [facility] | Roel Bello | Acquired Absence of | | 2007 | Encounter | CONVERSION DEP [address] | [address] [phone] | Organ, Genital | | | | [address] | (Fax) | Organs | | | | [place], [place] | | | | | | [address] | | | | | | [phone] | | | +--------+ + + + [...] + | Diagnosis | + + | Acquired absence of organ, genital organs | + + documented in this encounter"
--- OUTSIDE RECORDS SUMMARY | ~2019-11-09 | XMS | Encounter Summary ---
Demographics + + + | Address | [address] | | | [place] [address] | + + + | Home Phone [...] + +------+ + | Care Director Of Medical Services Name | Role | Phone | + +------+ + | Lubna Marie PA-C | PCP | | + +------+ + Encounter Details +--------+ + + + + | Date | Type | Department | Care Team | Description | +--------+ + + + + | // | Orders Only | [facility] | Savannah Kilgore Renny, | | | 2018 | | [address] | OPTICIAN MANAGER [address] | | | | | [place], [place] | [address] | | | | | [address] | [place] [address] | | | | | [phone] | [phone] | | | | | | | [...] | + +--------+ + + + | VAGINAL PATHOGENS | Routin | 06/24/2017 | | Results for this | | DNA DIRECT PROBE | e | 12:01 AM | | procedure are in the | | | | PDT | | results section. | + +--------+ + + + | CULTURE, URINE | Routin | 06/24/2017 | | Results for this | | | e | 12:01 AM | | procedure are in the | | | | PDT | | results section. | + +--------+ + + + documented in this encounter Results Vaginal Path DNA dir probe (06/24/2017 12:01 AM PDT) + + | Specimen | + + | | + + + + + | Narrative | Performed At | + + + | Trichomonas vaginosis NEGATIVE Gardnerella | EXTERNAL LAB | | vaginalis NEGATIVE FELICITA | | | NEGATIVE | | + + + + +---------+ + + | Performing | Address | City/State/Zipcode | Phone Number | | Organization | | | | + +---------+ + + | EXTERNAL LAB | | | | + +---------+ + + Culture, Urine (06/24/2017 12:01 AM PDT) + + | Specimen | + + | Urine specimen | | (specimen) | + + + + + | Narrative | Performed At | + + + | Specimen Description URINE,CLEAN CATCH CULTURE | EXTERNAL LAB | | 50,000 TO 100,000 CFU/ML | | | ESCHERICHIA | | | COLIAbnormal Suscepibility for - ESCHERICHIA COLI Ampicillin | | | SUSCEPTIBLESensitive Ampicillin + Sulbactam | | | SUSCEPTIBLESensitive Cefepime | | | SUSCEPTIBLESensitive Cefoxitin | | | SUSCEPTIBLESensitive Ceftazidime | | | SUSCEPTIBLESensitive Ceftriaxone | | | SUSCEPTIBLESensitive Ciprofloxacin | | | SUSCEPTIBLESensitive Gentamicin | | | SUSCEPTIBLESensitive Levofloxacin | | | SUSCEPTIBLESensitive Nitrofurantoin | | | SUSCEPTIBLESensitive Tobramycin | | | SUSCEPTIBLESensitive Trimethoprim + | | | SulfamethoxazoleSUSCEPTIBLESensitive | | + + + + +---------+ + + | Performing | Address | City/State/Zipcode | Phone Number | | Organization | | | | + +---------+ + + | EXTERNAL LAB | | | | + +---------+ + + documented in this encounter Visit Diagnoses Not on filedocumented in this encounter"
--- OUTSIDE RECORDS SUMMARY | ~2019-11-09 | XMS | Encounter Summary ---
Demographics + + + | Address | [address] | | | [place] [address] | + + + | Home Phone | | + + + | Preferred Language | Unknown | + + + | Marital Status | | + + + | Druze Affiliation | 1013 | + + + [...] Team Providers + +------+ + | Care Welding Foreman Name | Role | Phone | + +------+ + PCP | Unavailable | + +------+ + Encounter Details +--------+ + + + + | Date | Type | Department | Care Team | Description | +--------+ + + + + | 10/07/ | [facility] | [facility] | Conversion | Thyromegaly | | 2011 | Encounter | [facility]ICAL [facility]ENTER | Transaction, | | | | | ULTRASOUND [address] | Provider Unknown | | | | | [address] | | | | | | [place], [place] | (Fax) | | | | | [address] | | | | | | [phone] | | | +--------+ + + + [...] + | US THYROID | Routin | 10/08/2011 | | Results for this | | | e | 7:52 AM | | procedure are in the | | | | PDT | | results section. | + +--------+ + + + documented in this encounter Results US Thyroid (10/08/2011 7:52 AM PDT) + + | Specimen | + + | | + + + + + | Narrative | Performed At | + + + | [facility] THYROID 10/08/2011 7:24 AM HISTORY: | | | Enlarged thyroid gland on examination. TECHNIQUE: Ultrasound of | | | the thyroid gland was performed. FINDINGS: No prior comparison. | | | The right thyroid lobe measures 4.7 x 1.6 x 1.5 cm and the left lobe | | | measures 4.4 x 1.7 x 1.0 cm. The thyroid isthmus measures 2.9 mm. | | | The thyroid gland is diffusely heterogeneous and demonstrates | | | increased blood flow, raising concern for Graves' disease or | | | thyroiditis. There is an oval hypoechoic nodule in the lower pole | | | the right thyroid lobe measuring 1.2 x 0.7 x 0.7 cm. This is | | | indeterminate in etiology. An ultrasound guided biopsy is | | | recommended. IMPRESSION: 1. Mildly enlarged thyroid gland is | | | mildly heterogeneous and shows increased blood flow, suggesting either | | | Graves' disease or thyroiditis. Would correlate to TFTs. 2. | | | Focal nodule in the lower pole the right thyroid lobe measuring | | | 1.2-cm, indeterminate for malignancy. Ultrasound guided biopsy is | | | recommended. Electronically signed by Justyn Del Rosario MD on | | | 10/08/2011 8:11 AM | | + + + + + | Procedure Note | + + | Cain Jiménez Conversion - 11/14/2018 2:16 AM PDT [facility] DEJESUS THYROID10/08/2011 7:24 | | AM HISTORY:Enlarged thyroid gland on examination. TECHNIQUE:Ultrasound of the thyroid | | gland was performed. FINDINGS:No prior comparison. The right thyroid lobe measures 4.7 | | x 1.6 x 1.5 cm and the left lobe measures 4.4 x 1.7 x 1.0 cm. The thyroid isthmus | | measures 2.9 mm. The thyroid gland is diffusely heterogeneous and demonstrates | | increased blood flow, raising concern for Graves' disease or thyroiditis. There is an | | oval hypoechoic nodule in the lower pole the right thyroid lobe measuring 1.2 x 0.7 x | | 0.7 cm. This is indeterminate in etiology. An ultrasound guided biopsy is recommended. | | IMPRESSION:1. Mildly enlarged thyroid gland is mildly heterogeneous and shows | | increased blood flow, suggesting either Graves' disease or thyroiditis. Would correlate | | to TFTs.2. Focal nodule in the lower pole the right thyroid lobe measuring 1.2-cm, | | indeterminate for malignancy. Ultrasound guided biopsy is recommended. Electronically | | signed by Justyn Del Rosario MD on 10/08/2011 8:11 AM | | | |IMPRESSION: | |1. Mildly enlarged thyroid gland is mildly heterogeneous and shows increased blood flow, s uggesting either Graves' disease or thyroiditis. Would correlate to TFTs. | |2. Focal nodule in the lower pole the right thyroid lobe measuring 1.2-cm, indeterminate f or malignancy. Ultrasound guided biopsy is recommended. | | | | | + + documented in this encounter Visit Diagnoses + + | Diagnosis | + + | Thyromegaly Goiter, unspecified | + + documented in this encounter"
--- OUTSIDE RECORDS SUMMARY | ~2019-11-09 | XMS | Encounter Summary ---
Demographics + + + | Address | [address] | | | [place] [address] | + + + | Home Phone | | + + + | Preferred Language | Unknown | + + + | Marital Status | | + + + | Worship Affiliation | 1013 | + + + | Race | White | + + + | Ethnic Group | Not or | + + + Author + + + | Author | [facility] | | | and [place] | + + + | Organization | [facility] | | [...] Team Providers + +------+ + | Care Account Officer Name | Role | Phone | + +------+ + PCP | Unavailable | + +------+ + Encounter Details +--------+ + + + + | Date | Type | Department | Care Team | Description | +--------+ + + + + | 01/13/ | Hospital | [facility] | Roel Bello | Routine | | 2009 | Encounter | CONVERSION DEP [address] | [address] [phone] | Gynecological | | | | [address] | (Fax) | Examination | | | | [place], [place] | | | | | | [address] | | | | | | [phone] | | | +--------+ + + + [...]
[2019-11-10] MEDS ORDERED: FISH OIL 1,0001 EAC2 PO (09:16)
[2019-11-10] MEDS ORDERED: NYSTATIN100000 UN1 PO (09:17)
[2019-11-10] MEDS ORDERED: FLAGYL500 MG PO (09:17)
[2019-11-10] MEDS ORDERED: PRILOSEC OTC20 MG PO (09:18)
--- NOTE | 2019-11-25 10:59 | NUR ---
PT FAMILY DELIVERS CALHOUN TO PBX, THIS RN BRINGS THEM TO PT ROOM. PT PROVIDED WARM BLANKETS AT THIS TIME. PT NOTIFIED OF SURGERY WAIT TIME, CALL LIGHT WITHIN REACH.
--- NOTE | 2019-11-25 13:02 | NUR ---
PT UP TO BATHROOM WITH RN ASSIST. BACK TO BED, DENIES ANY NEEDS AT THIS TIME. CALL LIGHT WITHIN REACH.
--- NOTE | 2019-11-25 13:28 | NUR ---
HAS WAITED PATIENTLY. UP TO BR. IV PATENT.
--- NOTE | 2019-11-25 13:33 | NUR ---
IV INFUSED. INDU WHITE LEAD GRINDER ORDERED 2ND L LR HUNG. DOESNT ALLOW SCAN.
--- NOTE | 2019-11-25 17:21 | NUR ---
11/25/19 1721 [address]10- PT ARRIVES TO PACU EASILY AROUSABLE TO VOICE. PT IS WHINCING AND REPORTS PAIN A 7/10 WITH HER HANDS. PT IS ABLE TO POINT TO THE MIDDLE OF HER ABD TO REPORT WHERE HER PAIN IS. RESP EVEN AND UNLABORED. OXYGEN SAT HIGH 90'S TO 100% ON 10L VIA MASK.
--- NOTE | 2019-11-25 18:15 | NUR ---
PATIENT TO MED SURG AT 1805. PATIENT IS ON ROOM AIR, INDU TO LEFT LOWER QUADRANT AND DRAINING SANGUIOUS DRAINAGE. MIDLINE DRESSING IS CDI WITH ACTICOAT DRESSING, SCD'S ARE ON, VITALS ARE STABLE, MARQUEZ CATHETER IS DRAINING CLEAR YELLOW URINE. PATIENT REPORTS 5/10 ABDOMINAL PAIN BUT THIS IS AN IMPROVEMENT.
--- NOTE | 2019-11-25 19:28 | NUR ---
VITALS DONE AND CHARTED. PT'S GUEST NEEDS NOTHING AT THIS TIME.
--- NOTE | 2019-11-25 20:10 | NUR ---
PATIENT'S PAIN WAS DOWN TO A 4/10, BUT MOVING UP TO A 6/10 NOW, PATIENT'S JUST WENT HOME FOR THE NIGHT. CALLIGHT IN REACH. GOING BACK TO ASSESS AGAIN SHORTLY.
--- NOTE | 2019-11-25 20:48 | NUR ---
PATIENT GIVEN 0.5MG IV DILAUDID FOR 6/10 ABD PAIN. CALL LIGHT IN REACH.
--- NOTE | 2019-11-25 21:38 | NUR ---
VITALS DONE AND CHARTED.
--- NOTE | 2019-11-25 23:01 | NUR ---
PATIENT GIVEN 0.5MG IV DILAUDID FOR ABD PAIN 09/30. CALL LIGHT IN REACH.
--- NOTE | 2019-11-26 00:41 | NUR ---
PATIENT SAID HER PAIN HAS DECREASED TO A 5/10 AND SHE IS RESTING AND COMFORTABLE AND HAS NO NEEDS AT THIS TIME. CALL LIGHT IN REACH.
--- NOTE | 2019-11-26 02:41 | NUR ---
PATIENT CALLED FOR 8/10 ABD PAIN AND 0.5MG IV DILAUDID GIVEN, PAIN HAS ALREADY DROPPED TO A 6/10. CALL LIGHT IN REACH. VS STABLE, SCD'S ON, PULSE OX ON, IV INFUSING AND WNL, PATIENT GOING TO GO BACK TO SLEEP.
--- NOTE | 2019-11-26 03:52 | NUR ---
PATIENT CALLED HAVING 7/10 ABD PAIN AGAIN, 0.5MG IV DILAUDID GIVEN FOR PAIN. CALL LIGHT IN REACH. PATIENT WANTING TO GO BACK TO SLEEP.
--- NOTE | 2019-11-26 05:37 | NUR ---
PATIENT HAS HAD MULTIPLE DOSES OF DILAUDID THROUGH THE NIGHT FO ABD PAIN, BUT DID NOT NEED IT OFTEN IT WAS ALLOWED TO BE GIVEN, HAS HAD HYPOACTIVE BOWEL TONES AND IV IS INFUSING WNL. LUNGS CLEAR, SCD'S ON, CPOX IN PLACE VS STABLE AND MARQUEZ DRAING WELL. INDU IS BUTTING OUT MINIMAL SANGUINOUS DRAINAGE, ITS DRESSING IS CDI AND THE ABD DRESSING IS ALSO CLEAN DRY AND INTACT. TAKING IN PO FLUIDS, BUT NOT A LOT YET. RESTING NOW AFTER GETTING 30MG IV TORADOL AND 1,000MG TYLENOL FOR 6/10 ABD PAIN. CALL LIGHT AND NEW WATER IN PLACE.
--- NOTE | 2019-11-26 07:20 | NUR ---
Spoke with Josephine. She states she lives in [place] with her spouse and college age daughter. Denies needs as they will assist her as needed. She is in a 1 level home without steps. She does not use any DME. It's documented she does not have a pcp, but she sees Sheila Ernandez in [place]. Her pharmacy is [facility] in [place], if she has rx on dc, she would like it to be filled at [facility].
--- NOTE | 2019-11-26 07:40 | NUR ---
REPORT RECIEVED FROM ETHYLENE PLANT HELPER.
--- NOTE | 2019-11-26 08:09 | NUR ---
MORNING ASSESSMENT DONE. PATIENT RATES ABDOMINAL PAIN 6/10. MIDLINE DRESSING IS CDI, INDU IS DRAINING SEROSANGUIOUS FLUID. MARQUEZ CATHETER INTACT WITH CLEAR YELLOW URINE. PATIENT HAS A WHITE TONGUE, REPORTS THRUSH EVERY TIME SHE GETS ANTIBIOTICS, IS USING HOME SWISH AND SWALLOW MEDICATIONS. PATIENT UP TO CHAIR THIS MORNING, TOLERATED ACTIVITY WELL, STEADY ON HER FEET. WARM BLANKETS PROVIDED, CALL LIGHT WITHIN REACH.
[2019-11-26] MEDS ORDERED: VITAMIN D21250 MCG PO (09:09)
--- NOTE | 2019-11-26 10:46 | NUR ---
PATIENT ENDORSES 5/10 PAIN, DENIES NEEDING MEDICATION FOR THIS AT THIS TIME. PATIENT IS PLANNING TO WALK IN HALLWAY SOON.
[2019-11-26] MEDS ORDERED: NYSTATIN100000 UN1 PO (11:00)
--- NOTE | 2019-11-26 11:08 | NUR ---
MED REC COMPLETE
--- NOTE | 2019-11-26 12:15 | NUR ---
GAVE FLOWER BOUQUET TO PT IN THAT WAS DELIVERED TO HER. PT ALERT, ORIENTED AND SITTING IN CHAIR WITH PILLOW ON ABDOMEN. PT SUPPORTED BY DAUGHTER. PT IS PLEASANT, AND VERY EXCITED ABOUT THE CALHOUN. PT UNDERSTANDS POC, GAVE HER A BLESSING. WILL FOLLOW NEEDED
--- NOTE | 2019-11-26 13:06 | NUR ---
SBA TO STAND AND AMBULATE TO BED, TOLERATED WELL, RATES PAIN NOW AT 7/10, TORADOL GIVEN, POSITIONED FOR COMFORT, SCD'S PLACED, MARQUEZ PATENT WITH LIGHT YELLOW URINE. IVF INFUSING. TOLERTING CL LIQUID DIET. DR GANT IN TO SEE PT, WILL ADVANCE DIET TO FULLS.
--- NOTE | 2019-11-26 19:15 | NUR ---
SHIFT REPORT RECEIVED FROM MIGUEL ANGEL OLIVEIRA AT BEDSIDE. PT AWAKE AND RESTING IN CHAIR. MIDLINE DRESSING C/D/I. IV FLUIDS INFUSING, SITE WNL. NO NEEDS AT THIS TIME, CALL LIGHT IN REACH.
--- NOTE | 2019-11-26 19:24 | NUR ---
PATIENT AND I WALKED 1 SHORT LAP AROUND MED SURG.
--- NOTE | 2019-11-26 19:34 | NUR ---
PATIENT DID A SHAMPOO CAP. BUT SHE DIDN'T FEEL LIKE DOING A BED BATH OR TAKE A SHOWER.
--- NOTE | 2019-11-26 19:37 | NUR ---
BUT SHE DID DO HER AM CARE. ALSO BED LINENS WERE CHANGED. PATIENT IS SITTING UP IN HER CHAIR.
--- NOTE | 2019-11-26 20:30 | NUR ---
ASSESSMENT COMPLETE, SCHEDULED MEDS GIVEN ALONG WITH PRN DILAUDID (SEE EMAR). PT MOANING, FACIAL GRIMACING NOTED. VSS, PT ON RA. A/OX4. IV FLUIDS INFUSING, SITE WNL. ABD DRESSING C/D/I, INDU ALSO EMPTIED FOR 5MLS. SEROSANGUINEOUS IN COLOR. PT DENIES NAUSEA, ATE APPROX 50% OF DINNER TRAY. NO ADDITIONAL NEEDS, CALL LIGHT IN REACH.
--- NOTE | 2019-11-26 22:30 | NUR ---
SCHEDULED TYLENOL GIVEN (SEE EMAR) FOR 4/10 PAIN. WARM BLANKET GIVEN. NO FURTHER NEEDS, PT APPEARS COMFORTABLE AND RELAXED AT THIS TIME. CALL LIGHT IN REACH.
--- NOTE | 2019-11-27 00:22 | NUR ---
PT RESTING QUIETLY IN BED WITH EYES CLOSED. RR EVEN AND UNLABORED. NO DISTRESS NOTED. CALL LIGHT IN REACH.
--- NOTE | 2019-11-27 02:44 | NUR ---
ASSESSMENT COMPLETE, NO NEW CHANGES OR CONCERNS. IV ABX INFUSING, SITE X1 WNL. PRN TORADOL ALSO GIVEN FOR 4/10 ABD PAIN (SEE EMAR). ABD DRESSING C/D/I, INDU DRAIN PATENT. PT DENIES PASSING GAS, BOWEL TONES ACTIVE. ALSO DENIES NAUSEA. NO FURTHER NEEDS, CALL LIGHT IN REACH.
--- NOTE | 2019-11-27 06:35 | NUR ---
scheduled tylenol given (see emar) for 3-4/10 pain in abd. no further need, call ight in reach.
--- NOTE | 2019-11-27 06:43 | NUR ---
VITALS AND I&OS DONE AND CHARTED. GARBAGES EMPTIED. FRESH ICE WATER GIVEN. BEDSIDE TABLE AND CALL LIGHT IN REACH. PT NEEDS NOTHING MORE AT THIS TIME.
--- NOTE | 2019-11-27 07:30 | NUR ---
PATIENT SITTING UP IN BED. WHITE BOARD UPDATED. CALL LIGHT WITHIN REACH. NO OTHER NEEDS AT THIS TIME
--- NOTE | 2019-11-27 08:00 | NUR ---
MARQUEZ CATHETER DC'D, PT UP ABOUT ROOM INDEP. REPORTS SOME APPETITE THIS AM, STATES SHE FEELS SHE MIGHT HAVE BM THIS AM, DENIES FLATUS YET, ACTIVE BS. DENIES ANY NEEDS AT THIS TIME.
--- NOTE | 2019-11-27 08:56 | NUR ---
PATIENT SITTING UP IN CHAIR. VITAL SIGNS AND I&O DONE. CALL LIGHT WITHIN REACH. ICE WATER GIVEN. NO OTHER NEEDS AT THIS TIME
--- NOTE | 2019-11-27 10:13 | NUR ---
PT STATES SHE HAS VOIDED X1 SINCE JIMMY WAS DC'D. STATES SHE IS PASSING FLATUS AFTER EATING BREAKFAST, DENIES NAUSEA, DENIES NEED FOR PAIN MEDICATION AT THIS TIME, SITTING UP IN RECLINER WATCHING TV.
--- NOTE | 2019-11-27 12:57 | NUR ---
TOLERATING FULL LIQUID DIET WELL, NO NAUSEA, AMBULATING IN HALLWAY WITH DAUGHTER AT THIS TIME, TORADOL IV GIVEN FOR MOD DISCOMFORT.
--- NOTE | 2019-11-27 13:50 | NUR ---
PATIENT SITTING UP IN CHAIR. DAUGHTER IN ROOM. VITAL SIGNS AND I&O DONE. CALL LIGHT WITHIN REACH. ICE WATER GIVEN. NO OTHER NEEDS AT THIS TIME
--- NOTE | 2019-11-27 17:28 | NUR ---
PATIENT SITTING UP IN CHAIR. VITAL SIGNS AND I&O DONE. ICE WATER GIVEN. CALL LIGHT WITHIN REACH. NO OTHER NEEDS AT THIS TIME
--- NOTE | 2019-11-27 17:59 | NUR ---
PT DOING WELL, DENIES ANY NEEDS. REPORTS GOOD PAIN CONTROL WITH TYLENOL, ANTHONY CDI TO MIDLINE INCISION, INDU SECURE, + FLATUS, NO BM YET, DR GANT WAS IN TO SEE PT AND WILL ADVANCE DIET WITH BM.
--- NOTE | 2019-11-27 19:45 | NUR ---
SHIFT REPORT FROM NURSE OLIVEIRA. PT UP IN CHAIR. ALERT AND ORIENTED. NO NEEDS AT THIS TIME.
--- NOTE | 2019-11-27 20:10 | NUR ---
ASSESSMENT COMPLETE. PT WAS JUST UP TO BATHROOM AND REPORTS A MEDIUM SIZED LIQUID BROWN BM. PT HAD ALREADY FLUSHED TOILET. PT IS UP TO WALK THE HALLS. NO FURTHER NEEDS AT THIS TIME.
--- NOTE | 2019-11-27 20:24 | NUR ---
VITALS AND I&OS DONE AND CHARTED. EMPTIED GARBAGES. BEDSIDE TABLE AND CALL LIGHT IN REACH.
--- NOTE | 2019-11-27 22:57 | NUR ---
PT COMPLAINS OF INCISIONAL PAIN OF 7/10. PRN DILAUDID PROVIDED AT THIS TIME. PER ORDERS SINCE PT HAD A BM, PT CAN ADVANCE TO REGULAR DIET. PT REQUESTS CRACKERS AT THIS TIME. TAYLER AND SALTINE CRACKERS PROVIDED. NO FURTHER NEEDS AT THIS TIME.
--- NOTE | 2019-11-27 23:16 | NUR ---
PER DR GANT'S NOTE, PT CAN BE SALINE LOCKED. PT IS NOW SALINE LOCKED
--- NOTE | 2019-11-28 01:23 | NUR ---
pt RESTING IN BED WITH EVEN UNLABORED BREATHING. NO APPARENT SIGNS OF DISTRESS.
--- NOTE | 2019-11-28 04:57 | NUR ---
PT HAD A GOOD NIGHT. PT HAD A MEDIUM SIZED LIQUID BROWN BOWEL MOVEMENT TOWARDS BEGINNING OF SHIFT AND PER ORDERS WAS ADVANCED TO REGULAR DIET. PT HAD A FEW SALTINE AND TAYLER CRACKERS AND TOLERATED WELL. PT REQUESTED PRN PAIN MEDS TWICE DUE TO INCISIONAL PAIN. WOUND DRESSINGS CDI. INDU DRAINING. PT IS INDEPENDENT IN ROOM. EXCELLENT URINE OUTPUT. PT IS SALINE LOCKED PER ORDERS.
--- NOTE | 2019-11-28 07:40 | NUR ---
PATIENT SITTING UP IN CHAIR. RN IN ROOM. WHITE BOARD UPDATED. CALL LIGHT WITHIN REACH. NO OTHER NEEDS AT THIS TIME
--- NOTE | 2019-11-28 07:47 | NUR ---
PT UP IN THE CHAIR DURING BEDSIDE REPORT. INTERACTIVE AND ALERT. DENIES DISCOMFORTS OR NEEDS AT THIS TIME. CALL LIGHT IN HAND, FRESH H20 AT CHAIR SIDE
--- NOTE | 2019-11-28 09:19 | NUR ---
PATIENT SITTING UP IN CHAIR. VITAL SIGNS AND I&O DONE. CALL LIGHT WITHIN REACH. NO OTHER NEEDS AT THIS TIME
--- NOTE | 2019-11-28 09:49 | NUR ---
PT CONTINUES UP IN THE CHAIR. EATS 50% OF MORNING MEAL AMBULATES THE ADRIAN. ALL WELL TOLERATED. PT DENIES PAIN, NAUSEA, OR OTHER DISCOMFORTS.
[2019-11-28] MEDS ORDERED: ACETAMINOPHEN500 MG PO (10:29)
[2019-11-28] MEDS ORDERED: MOTRIN IB200 MG PO (10:29)
[2019-11-28] MEDS ORDERED: DILAUDID2 MG PO (10:30)
--- NOTE | 2019-11-28 11:00 | NUR ---
DR GANT IN TO SEE PT DC ORDERS WRITTEN. PT TO THE SHOWER WILL DC AFTER THAT
--- NOTE | 2019-11-28 11:08 | NUR ---
SHOWER WELL TOLERATED, PT GATHERING PERSONAL ITEMS FOR DC, DENIES NEED OF ASSIST. VERBALIZES UNDRSTANDING OF DC INSTRUCTIONS AGREES TO CALL [facility] FOR F/U APPT WITH DR GANT. DENIES QUESTIONS OR CONCERNS
--- NOTE | 2019-11-28 11:20 | OR ---
[facility] [address], [place] [address] Signed DATE OF OPERATION: 11/25/2019 SURGEON: Huong Gant MD PREOPERATIVE DIAGNOSES: 1. Chronic recurrent sigmoid diverticulitis. 2. Morbid obesity. POSTOPERATIVE DIAGNOSES: 1. Chronic recurrent sigmoid diverticulitis. 2. Morbid obesity. 3. Right hemorrhagic ovarian cyst (excised). 4. Chronic inflammation of the appendix. PROCEDURE: 1. Sigmoid colectomy with side-to-end coloproctostomy. 2. Excision of right ovarian hemorrhagic cyst. 3. Appendectomy. ANESTHESIA: General endotracheal; Huong Alas CRNA, and tap block postoperative. INDICATION: This morbidly obese 44-year-old white woman, is a patient of Yan Bernabe. She has episodic recurrent diverticulitis type symptoms including disabling left lower abdominal pain. She has had recurrent urinary tract infections and has had no pneumaturia to suggest colovesical fistula. She does have personal history of hysterectomy. She had no evidence of colitis on colonoscopy, though she did have diverticula. Given her chronic recurrent symptoms of diverticulitis and findings consistent with that of previous evaluation in [place], [place], consideration is made for sigmoid colectomy with primary anastomosis. Other indicated procedures to be performed were also discussed with her potentially. The risks of bleeding, infection, anastomotic failure, need for other indicated procedures, and other unforeseen complications including failure to cure her symptoms was reviewed in detail. She understands and wished to proceed. FINDINGS: She has a very thick abdominal wall pannus and significant intraabdominal obesity otherwise. Small bowel was normal. The appendix had chronic inflammatory change and was excised. There was no neoplasm within it, however. The terminal ileum was normal. The remaining small bowel was normal. Electronically Signed By: HUONG GANT MD 11/28/19 1120 PATIENT NAME: AYALA LANDA OPERATIVE REPORT DATE OF : 73 REPORT #: [id number] PHYSICIAN: HUONG GANT MD PCP: YAN BERNABE REPORT IS CONFIDENTIAL AND NOT TO BE RELEASED WITHOUT AUTHORIZATION [facility] [address], [place] [address] Signed The sigmoid colon had diverticula, but there was no dense phlegmon, only one area of inflammation of the taenia epiploica in the midsigmoid. Marked redundancy of the sigmoid and left colon was noted. excision than usual was undertaken on that basis alone. A side-to-end coloproctostomy was performed allowing for maintenance of GI continuity. Both fallopian tubes were found to be normal. The left ovary was normal. The right ovary had a hemorrhagic cyst associated with it, approximately 3 cm or so in size. This was excised without problem. Indeed, there was surgical absence of the uterus, but there was no evidence whatsoever of coloenteric fistula in any way. DESCRIPTION OF PROCEDURE: The patient was brought to the operating room, given a general endotracheal anesthetic. A Moore catheter was placed. The abdomen was prepared with chlorhexidine solution and draped sterilely. Preoperative antibiotic cefoxitin was given and a complete bowel prep including oral antibiotics was also given. A Moore catheter was placed. The abdomen was clipped and prepared with chlorhexidine solution and draped sterilely. An infraumbilical incision was made extending to the symphysis pubis. The incision was initially rather small, but her abdominal wall pannus was rather large, I would say approximately 5 inches or so. The abdomen was entered without problem. An Intraabdominal inspection showed no sign of ascites or carcinomatosis. The small bowel was examined and found to be normal as was the terminal ileum. The appendix showed chronic inflammatory change with no fecalith or neoplasm and not acutely inflamed. The sigmoid colon was impressively redundant. It had diverticula and there was some thickening of the mesentery associated with it, but not as much as I had expected actually. There was surgical absence of the uterus, but no evidence of colovesical fistula. A Bookwalter retractor was placed and the omentum from the abdomen withdrawn and elevated cephalad. The small bowel was packed to the right side of the abdomen and secured with a Bookwalter clamp device system. Good exposure of the retroperitoneum was undertaken and noted. The redundant sigmoid was put on tension and examination showed diverticular changes, but no sign of dense hard mass of this sigmoid or any other area, only inflammatory areas of the taenia epiploica in the mid sigmoid. The white line of Toldt was incised and the sigmoid colon freed more fully. The mesentery was incised with electrocautery at the distal descending colon well above much of the redundant sigmoid. An area designated for transection of the distal left colon was undertaken with a silk suture. Distally, the area of the proximal rectum was identified (coalescence of taenia epiploica). The area slightly inferior to this deemed appropriate for anastomosis. There was no palpable mass within the sigmoid or rectum. The mesentery was scored with electrocautery and sequential application of hemostats undertaken. The vascular pedicles were secured with 0 silk ties except in this area were dominant areas, where dominant arterial and venous branches (sigmoidal branches) were noted and these were secured doubly with 0 silk ties. A ROMAN-55 stapling device was Electronically Signed By: HUONG GANT MD 11/28/19 1120 PATIENT NAME: AYALA LANDA OPERATIVE REPORT DATE OF : 73 REPORT #: [id number] PHYSICIAN: HUONG GANT MD PCP: YAN BERNABE REPORT IS CONFIDENTIAL AND NOT TO BE RELEASED WITHOUT AUTHORIZATION [facility] [address], [place] [address] Signed used to transect the left colon. Further dissection inferiorly allowed for similar dissection of the rectal mesentery. In the [id number] rectum, an area of anastomosis was designated. Electrocautery was used for dissection through the rectal mesentery to the rectum itself. The right angle bowel clamp was applied to the [id number] rectum. The site isolated with moistened laparotomy packs. Additional clamps were applied proximal to the right angle bronchus clamp and the rectum was transected with prostate scissors. Specimen was passed for pathology, opened on the back table and found to have diverticula, but no sign of neoplasm. There was a small polyp noted. Plans were then made for anastomosis. Mobility of the remaining left colon was such that formal splenic flexure mobilization was not required. The side-to-end coloproctostomy was undertaken after over-sewing the proximal stapled end with interrupted 3-0 silk suture. Anastomosis was a 2-layer technique of interrupted 3-0 silk suture. Mesentery was secured with running 3-0 silk as well. Irrigation was undertaken isolating laparotomy packs having been removed. There was wide patency to the anastomosis, excellent viability and no problems. To the left lower quadrant stab incision, a 7 mm flat Dimitrios drain was placed and manipulated into the pelvis and area of the right adnexa. The left tube and left ovary were entirely normal. The right tube was normal, but the ovary on the right side had a hemorrhagic cyst. This was excised sparing the ovarian tissue using blunt and electrocautery dissection. The incision site was secured with running 2-0 Vicryl suture for good hemostasis. Reexamination of the right colon was undertaken showing a slightly redundant cecum and what appeared to be chronically inflamed appendix. There was no fecalith or neoplasm, but excision was deemed appropriate on the basis of those findings. A window was created between the appendix and the mesoappendix, and the mesoappendix secured with hemostats, divided and secured with silk ties. The now skeletonized base of the appendix was crushed with a hemostat, milked distally and the crushed rain ligated with 2-0 silk tie. Interrupted 3-0 silk suture was used to invert the stump after cauterizing the tip of the mucosa of the appendiceal stump. Irrigation was undertaken. Excess irrigation fluid was suctioned free. The drain was manipulated to be draining the pelvis. The upper abdomen had no palpable abnormality including the liver. The fascia was then closed with a running bidirectional #1 PDS suture. Subcutaneous tissue was irrigated and skin closed with running subcuticular 3-0 Vicryl. Steri-Strips were applied as was an Ligia silver sponge dressing. The drain was applied to bulb suction. The patient tolerated the procedure well. Blood loss was less than 50 mL. Sponge, needle, and instrument counts were correct x3. Electronically Signed By: HUONG GANT MD 11/28/19 1120 PATIENT NAME: AYALA LANDA OPERATIVE REPORT DATE OF : 73 REPORT #: [id number] PHYSICIAN: HUONG GANT MD PCP: YAN BERNABE REPORT IS CONFIDENTIAL AND NOT TO BE RELEASED WITHOUT AUTHORIZATION [facility] [address], [place] [address] Signed MD LUCIANO Lazcano/ALLISON /[id number] cc: JAZMYNE Paredes Copies: YAN BERNABE ~ Electronically Signed By: HUONG GANT MD 11/28/19 1120 PATIENT NAME: CORDELLAYALA OPERATIVE REPORT DATE OF : 73 REPORT #: [id number] PHYSICIAN: HUONG GANT MD PCP: YAN BERNABE REPORT IS CONFIDENTIAL AND NOT TO BE RELEASED WITHOUT AUTHORIZATION
--- NOTE | 2019-11-29 09:45 | DS ---
[facility] [address], [place] [address] Signed ADMISSION DATE: 11/25/2019 DISCHARGE DATE: 11/28/2019 REASON FOR ADMISSION: This morbidly obese white woman is a patient of JAZMYNE Paredes, and has had episodic recurrent diverticulitis symptoms including disabling left lower abdominal pain. She also has had recurrent urinary tract infection, but no pneumaturia or anything to suggest colovesical fistula. She has personal history of hysterectomy. She has no evidence of colitis on colonoscopy, though she did have diverticula. Given her chronic recurrent symptoms of diverticulitis, return nearly disabling and quite disruptive to her life, she has elected to undergo sigmoid resection for definitive management of her diverticular problem. She is admitted at this time for that purpose. PERTINENT PHYSICAL EXAMINATION: GENERAL: Showed a pleasant white woman, who is morbidly obese. CHEST: Clear. HEART: Regular, without murmur. ABDOMEN: Obese, but soft. There is no focal mass or tenderness at this time. EXTREMITIES: Show no clubbing, cyanosis, or edema. HOSPITAL COURSE: On November 25, 2019, she underwent exploration to include low midline pelvic laparotomy and sigmoid colectomy with side-to-end coloproctostomy. Additionally, she had a right hemorrhagic ovarian cyst ( about 3 cm in size) which was excised and underwent appendectomy due to an enlarged, elongated and somewhat chronically inflamed appendix. A pelvic drain was also placed. Her postoperative course was rather unremarkable. She is maintained with minimal opiate use, but instead IV Toradol, IV Tylenol, transitioning to oral Tylenol and some use of IV Toradol, ultimately with occasional use of Dilaudid. She was fed clear liquids on the day of operation, advanced to full liquids the next day and ultimately regular diet once having bowel movement on postoperative day #2. By the time of discharge, she is ambulating well, tolerating a regular diet, has bowel movements, incision is healing well and drain has been removed. DISCHARGE INSTRUCTIONS: as regards wound care-- she will keep Steri-Strips in place and is permitted to shower. She should lift no more than 20 pounds for the next 4 weeks. We will plan to see her back in the Electronically Signed By: HUONG GANT MD 11/29/19 0945 PATIENT NAME: AYALA LANDA DISCHARGE SUMMARY DATE OF : 73 REPORT #: [id number] PHYSICIAN: HUONG GANT MD PCP: YAN BERNABE REPORT IS CONFIDENTIAL AND NOT TO BE RELEASED WITHOUT AUTHORIZATION [facility] [address], [place] [address] Signed office in about a month. DISCHARGE INSTRUCTIONS: 1. Tylenol 1000 mg p.o. q.6 hours as needed for pain. 2. Motrin 200 mg tablets three tabs p.o. q.6 hours as needed for pain. 3. Dilaudid 2 mg one to two tablets p.o. q.4 hours as needed for severe pain, quantity #20. 4. She will continue with her omega-3 fatty acid fish oil capsule daily, omeprazole 20 mg daily, and nystatin 100,000 units/mL 5 mL orally as needed. DISCHARGE DIAGNOSES: 1. Chronic recurrent sigmoid diverticulitis, status post low anterior resection including sigmoid resection with primary side-to-end coloproctostomy on November 25, 2019. 2. Hemorrhagic right ovarian cyst (excised). 3. Appendectomy for chronic-appearing appendicitis. MD LUCIANO Lazcano/JAKYL /[id number] cc: JAZMYNE Paredes Copies: YAN BERNABE ~ Electronically Signed By: HUONG GANT MD 11/29/19 0945 PATIENT NAME: AYALA LANDA DISCHARGE SUMMARY DATE OF : 73 REPORT #: [id number] PHYSICIAN: HUONG GANT MD PCP: YAN BERNABE REPORT IS CONFIDENTIAL AND NOT TO BE RELEASED WITHOUT AUTHORIZATION
--- NOTE | 2019-11-30 14:48 | PATH ---
[facility] [address], [place] [address] Signed SPECIMEN(S): A PORTION OF SIGMOID COLON SPECIMEN(S): B RIGHT OVARIAN CYST SPECIMEN(S): C APPENDIX SPECIMEN SOURCE: A. PORTION OF SIGMOID COLON B. RIGHT OVARIAN CYST C. APPENDIX CLINICAL HISTORY: Diverticulitis of sigmoid colon. Appendix - chronic inflammation. Sigmoid colon resection. FINAL PATHOLOGIC DIAGNOSIS: A. Colon, sigmoid, resection: - Diverticulosis. B. Cyst, right ovary, excision: - Hemorrhagic corpus luteum cyst. - Background ovary with endosalpingiosis. C. Appendix, appendectomy: - Serosal fibrous adhesions and focal endosalpingiosis on the serosal surface. - Negative for acute inflammation. NAL:cml:C2NR MICROSCOPIC EXAMINATION: Histologic sections of all submitted blocks are examined by light microscopy. These findings, together with the gross examination, support the pathologic diagnosis. GROSS DESCRIPTION: Three specimens are received in three containers, labeled "SE." A. The specimen, labeled "SE," and designated on the requisition "portion of sigmoid colon," is received in formalin and consists of a previously opened segment of large bowel (30.7 cm in length and ranging in circumference from 4.1-6.4 cm), with attached portion of mesentery (extending 7.9 cm). The serosa is pink-mohr and smooth and the mucosa is pink-mohr with multiple diverticula. The bowel margins are differentially inked blue and green. Government Minister sections are submitted as follows: (A1) bowel margins, en face (A2) diverticula PATIENT NAME: AYALA LANDA PATHOLOGY DATE OF : 73 REPORT #: [id number] PHYSICIAN: JOSEY ESCOBAR PCP: YAN BERNABE REPORT IS CONFIDENTIAL AND NOT TO BE RELEASED WITHOUT AUTHORIZATION [facility] [address], [place] [address] Signed (A3) bowel wall B. The specimen, labeled "S E," and designated on the requisition "right ovarian cyst," is received in formalin and consists of a disrupted portion of pink to brown-mohr and hemorrhagic ovary (3.2 x 2.0 x 1.0 cm). The tissue is serially sectioned to reveal a brown-mohr to hemorrhagic solid, friable cut surface. The specimen is submitted entirely in cassettes (B1-B2). C. The specimen, labeled "SE," and designated on the requisition "appendix," is received in formalin and consists of Specimen: Appendix with mesoappendix. Dimensions: 10.8 x 4.7 x 1.4 cm. Serosa: [place]-mohr to slightly congested. Perforation: Not grossly identified. Inking: Staple line is inked black. Mucosa: [place]-mohr to slightly hemorrhagic. Fecalith: Not grossly identified. Additional: None. Government Minister sections are submitted in cassette (C1). AC (under the direct supervision of a pathologist) The Gross Description was prepared using a voice recognition system. The report was reviewed for accuracy; however, sound-alike word errors, addition and/or deletions may occur. If there is any question about this report, please contact Client Services. PERFORMING LABORATORY: The technical component was performed by [facility], [address] [place] [address] ([employer] Supervisor: Pia Porras MD; CLIA# [id number]). Professional interpretation was performed by [facility], [facility], [address] [address] (CLIA# [id number]). Diagnostician: Shira James MD Pathologist Electronically Signed 11/30/2019 Copies: ~ PATIENT NAME: AYALA LANDA PATHOLOGY DATE OF : 73 REPORT #: [id number] PHYSICIAN: JOSEY ESCOBAR PCP: YAN BERNABE REPORT IS CONFIDENTIAL AND NOT TO BE RELEASED WITHOUT AUTHORIZATION
== END 2019-11-28 11:30 | disposition home or self-care (01) | DRG 331 ==
LOC: MS 11-25 06:45 → DSVR 11-25 08:55 → MS 11-25 08:55
PROVIDERS: ADMIT Surgery; ATTEND Surgery
PROC: 3E0T3BZ Introduction of Anesthetic Agent into Peripheral Nerves and Plexi, Percutaneous Approach (ICD-10-PCS; 2019-11-25)
PROC: 0DTN0ZZ Resection of Sigmoid Colon, Open Approach (ICD-10-PCS; principal; 2019-11-25 09:45)
PROC: 0DTJ0ZZ Resection of Appendix, Open Approach (ICD-10-PCS; 2019-11-25 09:45)
PROC: 0UB00ZZ Excision of Right Ovary, Open Approach (ICD-10-PCS; 2019-11-25 09:45)
DX: K57.32 Diverticulitis of large intestine without perforation or abscess without bleeding (principal); E66.01 Morbid (severe) obesity due to excess calories; K36 Other appendicitis; K21.9 Gastro-esophageal reflux disease without esophagitis; N83.201 Unspecified ovarian cyst, right side; G89.18 Other acute postprocedural pain; Z88.5 Allergy status to narcotic agent; Z79.899 Other long term (current) drug therapy; Z68.34 Body mass index [BMI] 34.0-34.9, adult
CPT/HCPCS: 00790; 36415; 64488; 71046; 76942; 80048; 83735; 85025; J0131; J0330; J0694; J1100; J1170; J1644; J1885; J2175; J2250; J2405; J2704; J2765; J3010; J7121

== ENCOUNTER 2023-01-24 10:45 | Day surgery (SDC) | payer OTHER ==
[2023-01-21 16:28] VITALS: BP 133/94
[~2023-01-24] VITALS: Ht 180.3 cm; Wt 125.0 kg
[~2023-01-24 10:45] MED LIST: ACETAMINOPHEN500 MG PO; DILAUDID2 MG PO; FISH OIL 1,0001 EAC2 PO; FLAGYL500 MG PO; MOTRIN IB200 MG PO; MULTI VITAMIN1 EACH PO; NYSTATIN100000 UN1 PO; PRILOSEC OTC20 MG PO; VITAMIN D21250 MCG PO; VITAMIN D350 MCG PO
[2023-01-24 11:14] VITALS: BP 144/88
--- NOTE | 2023-01-24 14:50 | NUR ---
01/24/23 1450 Sheets,Tete 1443 PT ARRIVED TO PACU ON 8L JAW THRUST USED TO MAINTAIN AIRWAY. PT NONAROUSABLE. 1448 PT WOKE AND ORAL AIRWAY AND MASK REMOVED. PT REPORTS SMALL AMOUNT OF PAIN AND EASILY FALLS BACK TO SLEEP.
[2023-01-24] MEDS ORDERED: MOTRIN IB200 MG PO (14:59)
[2023-01-24] MEDS ORDERED: TYLENOL EXTRA500 MG PO (14:59)
[2023-01-24] MEDS ORDERED: PERCOCET 7.5-31 EACH PO (14:59)
[2023-01-24] MEDS ORDERED: ONDANSETRON ODT8 MG PO (15:00)
[2023-01-24 15:20] VITALS: BP 128/80
--- NOTE | 2023-01-24 15:37 | NUR ---
JAMESON 1515 PATIENT BACK TO TREATMENT ROOM. REPORT RECIEVED FROM JORGITO AQUINO. PATIENT DROWSY BUT ORIENTED. PATIENT STATES PAIN IS A 4/10 BUT TOLERABLE. PATIENT DENIES BEING NAUSEATED. PATIENT SURGICAL SITE HAS SMALL AMOUNT OF RED DRAINAGE. GAUZE PAD PLACED FOR DRAINAGE. IVF INFUSING. SCD'S ON. PATIENT GIVEN SODA AND PUDDING. AT BEDSIDE. CALL LIGHT WITHIN REACH NO FUTHER NEEDS. NO QUESTIONS AT THIS TIME.
--- NOTE | 2023-01-24 15:51 | NUR ---
LE 1544 PATIENT GIVEN PRN PAIN MEDICINE. CALL LIGHT WITHIN REACH NO FUTHER NEEDS. NO QUESTIONS.
--- NOTE | 2023-01-24 16:03 | NUR ---
LE 1600 PATIENT ABLE TO AMBULATED TO THE BATHROOM VOIDED 100 MLS OF CLEAR AND YELLOW. PATIENT AMBULATED BACK. PATIENT GETTING DRESSED. CALL LIGHT WITHIN REACH NO FUTHER NEEDS. NO QUESTIONS
[2023-01-24 16:15] VITALS: BP 144/80
--- NOTE | 2023-01-24 16:22 | NUR ---
LE 1615 PATIENT HAS MET DISCHARGE CRITERIA. PATIENT GIVEN DISCHARGE CRITERIA. PATIENT IV D/C'D WNL. PATIENT WHEELED OUT OF FACILITY NO FUTHER NEEDS. NO QUESTIONS AT THIS TIME.
--- NOTE | 2023-01-26 15:34 | OR ---
[facility] [address] [place], [place] [address] Signed DATE OF OPERATION: 01/24/2023 SURGEON: Huong Gant MD PREOPERATIVE DIAGNOSES: 1. Chronic calculous cholecystitis. 2. Morbid obesity. 3. History of sigmoid resection. POSTOPERATIVE DIAGNOSES: 1. Chronic calculous cholecystitis. 2. Morbid obesity. 3. History of sigmoid resection. PROCEDURES: 1. Laparoscopic cholecystectomy with intraoperative cholangiogram. 2. Surgeon-directed fluoroscopy. ANESTHESIA: General endotracheal; Huong Winters CRNA and local 10 mL of 0.25% Marcaine with epinephrine. INDICATION: This 47-year-old morbidly obese white woman is a patient of Yan Bernabe in [facility]. The patient lives in [place]. She is known to me from the past having undergone sigmoid resection for diverticular disease. She has developed right upper abdominal pain and found on evaluation to have multiple gallstones. She is admitted at this time to undergo cholecystectomy preferred by a laparoscopic approach. The risk of bleeding, infection, bile duct injury, need for open procedure and other indicated procedures was reviewed in detail. She understands and wished to proceed. FINDINGS: The gallbladder was quite chronically inflamed and very thickened. It had a pink haze to it. The liver had mild fatty infiltration. The gallbladder had a single gallstone within the cystic duct which is milked into the gallbladder allowing for cholangiogram, which was normal. The gallbladder once excised had multiple 8 mm multifaceted pale yellow gallstones. The mucosa showed no sign of neoplasm. The cholangiogram was normal. DESCRIPTION OF PROCEDURE: Electronically Signed By: HUONG GANT MD 01/26/23 1534 PATIENT NAME: AYALA LANDA OPERATIVE REPORT DATE OF : 73 REPORT #: [id number] PHYSICIAN: HUONG GANT MD PCP: YAN BERNABE REPORT IS CONFIDENTIAL AND NOT TO BE RELEASED WITHOUT AUTHORIZATION [facility] [address] [place], [place] [address] Signed The patient was brought to the operating room, given a general endotracheal anesthetic. Preoperative antibiotic Ancef was given and sequential compression device stockings were used. Heparin was subcutaneously administered as well. The abdomen was prepared with a chlorhexidine solution and draped sterilely. An incision was noted to extend above the umbilicus to the symphysis pubis from prior colectomy. A supraumbilical incision was made and using an open Faheem cannula technique pneumoperitoneum was achieved to a level of 14 mmHg with carbon dioxide gas. Intra-abdominal inspection showed no sign of ascites or carcinomatosis. The gallbladder was pale yellow pink in appearance and quite chronically inflamed. The liver had mild fatty infiltration. Three additional trocars were placed in usual configuration in the subxiphoid, right midclavicular, and right anterior axillary line. The gallbladder was elevated cephalad. The gallbladder was dissected free in its infundibular portion with great care identifying ultimately the cystic artery and the cystic duct. Cystic duct was thickened and somewhat enlarged. Using the critical view of safety, the wound was created between the cystic duct and the of the gallbladder. The cystic duct was isolated more fully and milked in a retrograde fashion perceiving the passage of the stone proximally into the gallbladder. This allowed for clipping of the gallbladder cystic duct junction. A transverse choledochotomy was made in the cystic duct. Egress of thickened bile was noted. There was no actual stone. Using an Jc type cholangiocatheter, intraoperative cholangiography was undertaken showing free flow of contrast in the biliary tree with prompt emptying into the duodenum. There was no evidence of filling defect or biliary anomaly. It is uncertain, but the cystic duct may have entered on the medial aspect of the common bile duct. The catheter was removed and the cystic duct was triply clipped. As the gallbladder cystic duct was rather thickened, an Endoloop was applied to secure the cystic duct more definitively. The gallbladder was then dissected free in a retrograde fashion. Clips were applied to the cystic arterial branches as necessary. The gallbladder was extracted through the infraumbilical port site and opened on the back table, noting multiple pale yellow multifaceted gallstones about 8 mm in size. The mucosa was normal other than chronic inflammation. Irrigation was undertaken in the subhepatic space. There was no sign of bile leak, bleeding or other problems. The trocar was removed under direct visualization. The supraumbilical fascial incision was closed with interrupted 0 Vicryl suture and a running 0 PDS suture. 10 mL of 0.25% Marcaine with epinephrine was injected locally. The skin was then closed with interrupted 3-0 Vicryl. Steri-Strips were applied. Electronically Signed By: HUONG GANT MD 01/26/23 1534 PATIENT NAME: AYALA LANDA OPERATIVE REPORT DATE OF : 73 REPORT #: [id number] PHYSICIAN: HUONG GANT MD PCP: YAN BERNABE REPORT IS CONFIDENTIAL AND NOT TO BE RELEASED WITHOUT AUTHORIZATION [address] [address] Signed The patient was ultimately extubated and transferred to the recovery room in good condition having suffered no complication. Sponge, needle, and instrument counts were reported as correct x3. MD LUCIANO Lazcano/ALLISON /[id number] cc: JAZMYNE Ruelas Copies: ~ Electronically Signed By: HUONG GANT MD 01/26/23 1534 PATIENT NAME: AYALA LANDA OPERATIVE REPORT DATE OF : 73 REPORT #: [id number] PHYSICIAN: HUONG GANT MD PCP: YAN BERNABE REPORT IS CONFIDENTIAL AND NOT TO BE RELEASED WITHOUT AUTHORIZATION
--- NOTE | 2023-01-28 15:44 | PATH ---
[facility] [address] [facility] [place], [place] [address] Signed SPECIMEN(S): A GALLBLADDER WITH STONES SPECIMEN SOURCE: A. GALLBLADDER WITH STONES CLINICAL HISTORY: Cholecystitis with calculus. FINAL PATHOLOGIC DIAGNOSIS: Gallbladder with stones: - Chronic calculous cholecystitis. JVR:tito MICROSCOPIC EXAMINATION: Histologic sections of all submitted blocks are examined by light microscopy. These findings, together with the gross examination, support the pathologic diagnosis. GROSS DESCRIPTION: The specimen, labeled and designated "Daniel Saxena, gallbladder with stones," is received in formalin and consists of: Specimen: Previously opened gallbladder. Dimensions: 8.6 x 3.5 x 0.7 cm. Serosa: Tillar-mohr and smooth. Cystic Duct: Patency cannot be grossly assessed, inked blue. Calculi: Multiple opalescent smooth calculi, aggregate measurement 5.5 x 4.8 x 1.3 cm. Mucosa: Tillar and shaggy. Wall thickness: 0.4 cm. Lymph node: No pericystic lymph nodes are grossly identified. Additional: None. Special Needs Babysitter sections are submitted in (A1). FB (under the direct supervision of a pathologist) The Gross Description was prepared using a voice recognition system. The report was reviewed for accuracy; however, sound-alike word errors, addition and/or deletions may occur. If there is any question about this report, please contact Client Services. PERFORMING LABORATORY: Technical component was performed by [facility], [address] [place] [id number] (CLIA# [id number]). PATIENT NAME: AYALA SAXENA PATHOLOGY DATE OF : 73 REPORT #: [id number] PHYSICIAN: JOSEY ESCOBAR PCP: YAN BERNABE REPORT IS CONFIDENTIAL AND NOT TO BE RELEASED WITHOUT AUTHORIZATION [address] [address] Signed Professional interpretation [facility] - [address] [address] (CLIA#: [id number]). Diagnostician: Shar Jalloh MD Pathologist Electronically Signed 01/28/2023 Copies: ~ PATIENT NAME: AYALA SAXENA PATHOLOGY DATE OF : 73 REPORT #: [id number] PHYSICIAN: JOSEY ESCOBAR PCP: YAN BERNABE REPORT IS CONFIDENTIAL AND NOT TO BE RELEASED WITHOUT AUTHORIZATION
== END 2023-01-24 16:15 | disposition home or self-care (01) ==
LOC: DS 10:45
PROVIDERS: ATTEND Surgery
PROC: BF121ZZ Fluoroscopy of Gallbladder using Low Osmolar Contrast (ICD-10-PCS; 2023-01-24)
PROC: 0FT44ZZ Resection of Gallbladder, Percutaneous Endoscopic Approach (ICD-10-PCS; principal; 2023-01-24 13:45)
DX: K80.10 Calculus of gallbladder with chronic cholecystitis without obstruction (principal); E66.01 Morbid (severe) obesity due to excess calories; Z88.5 Allergy status to narcotic agent
CPT/HCPCS: 00790; 74300; J0330; J0690; J1100; J1644; J1885; J2250; J2405; J2704; J2765; J3010; J3490; J7121; Q9967